=== PATIENT | male | born 1950 | race Hispanic/Latino ===

== ENCOUNTER 2018-01-09 09:02 | Inpatient (IN) | payer MEDICARE ==
[2017-12-26 11:35] VITALS: BMI 41.8
[2018-01-09] MEDS ORDERED: Propofol 10 mg/ml Inj (20 ML) ONE ×3 (10:58→16:06)
[2018-01-09] MEDS ORDERED: Midazolam 2 MG/2 ML VIAL ONE (10:59)
[2018-01-09] MEDS ORDERED: Rocuronium 10 mg/ml (5 ml) ONE (11:05)
--- NOTE | 2018-01-09 12:16 | CP.PCM.HP ---
History of Present Illness - History of Present Illness History of Present Illness: 67 M failed conservative management elected for a right total knee replacement No history of bleeding disorders, blood clots, SC or stents NKA Present on Admission - Present on Admission Any Indicators Present on Admission: No History of DVT/PE: No Past Patient History - Past Social History Smoking Status: Never Smoked - CARDIAC Hx Pacemaker: No - PULMONARY Hx Respiratory Disorders: No - NEUROLOGICAL Hx Paralysis: No - ENDOCRINE/METABOLIC Hx Endocrine Disorders: No - HEMATOLOGICAL/ONCOLOGICAL Hx Blood Transfusions: No - MUSCULOSKELETAL/RHEUMATOLOGICAL Hx Musculoskeletal Disorders: Yes (OSTEOARTHRITIS) - GASTROINTESTINAL Hx Gastrointestinal Disorders: No - GENITOURINARY/GYNECOLOGICAL Hx Genitourinary Disorders: Yes (URETHRAL STRICTURE) Hx Reproductive Disorders: No - PSYCHIATRIC Hx Emotional Abuse: No Hx Physical Abuse: No Hx Substance Use: No - SURGICAL HISTORY Hx Surgeries: Yes - ANESTHESIA Hx Anesthesia Reactions: No Hx Malignant Hyperthermia: No Meds Allergies/Adverse Reactions: Allergies Allergy/AdvReac Type Severity Reaction Status Date / Time No Known Allergies Allergy Verified 10/19/13 16:06 Physical Exam - Constitutional Appears: Well, No Acute Distress - Head Exam Head Exam: ATRAUMATIC, NORMAL INSPECTION, NORMOCEPHALIC - Neck Exam Neck exam: Positive for: Full Rom, Normal Inspection - Respiratory Exam Respiratory Exam: NORMAL BREATHING PATTERN - Cardiovascular Exam Cardiovascular Exam: RRR - Expanded Lower Extremities Exam Right Knee exam: tenderness (calf soft nontender. NVI distally ) - Neurological Exam Neurological exam: Alert, Oriented x3 - Psychiatric Exam Psychiatric exam: Normal Affect, Normal Mood - Skin Skin Exam: Dry, Intact, Normal Color, Warm Results - Vital Signs Recent Vital Signs: Last Vital Signs Temp 97.8 F 01/09/18 09:15 Pulse 99 H 01/09/18 09:15 Resp 18 01/09/18 09:15 BP 147/84 01/09/18 09:15 Pulse Ox 96 01/09/18 09:15 Assessment & Plan (1) Osteoarthritis of right knee Status: Acute - Assessment and Plan (Free Text) Plan: Right Total knee arthroplasty Type and screen NPO labs reviewed Patient medically optimized for a right total knee replacement Patient verbalizes understanding and would like to proceed with a right total knee replacement
[2018-01-09] MEDS ORDERED: Tranexamic Acid 1 ML ONE ×2 (13:32→15:49)
[2018-01-09] MEDS ORDERED: Sodium Chloride 0.9% 20 ML IV ONE (15:07)
[2018-01-09] MEDS ORDERED: Bupivacaine Liposomal Inj 20 ml ONE (15:07)
[2018-01-09] MEDS ORDERED: Vancomycin 1 g Inj ONE (15:20)
[2018-01-09] MEDS ORDERED: Morphine 1 mg/ml preservative-free Inj(Duramorph) ONE (15:43)
[2018-01-09] MEDS ORDERED: Bupivacaine Liposomal Inj 20 ml INJ ONE (15:44)
[2018-01-09] MEDS ORDERED: Neostigmine Methylsulfate 3mg/3ml Syringe IV ONE (16:06)
[2018-01-09] MEDS ORDERED: Bupivacaine 0.25% Inj(30mL) ONE (16:10)
[2018-01-09] MEDS ORDERED: HYDROmorphone 1 mg/ml ISec IVP PRN (17:12)
[2018-01-09] MEDS ORDERED: HYDROmorphone 0.5 mg/0.5 ml ISec IVP PRN (17:13)
[2018-01-09] MEDS ORDERED: Lactated Ringer's 1,000 ML IV SCH (17:15)
--- NOTE | 2018-01-09 17:15 | PCM.ANESB3 ---
Femoral Nerve Block - Femoral Nerve Block Date of Procedure: 01/09/18 Anesthesiologist: sushil Pre-Procedure Diagnosis: r tkr Post-Procedure Diagnosis: same Procedure Performed: Femoral Nerve Block Right - Procedure Femoral Nerve Block: The procedure was explained to the patient that it is for the post-operative pain management. Consent was obtained after a thorough discussion with the patient regarding the benefits and possible complications of local anesthetic block of the femoral nerve at the inguinal crease area. The patient was brought to the operating room and standard monitors were applied. Time-out was held with the circulating nurse to confirm the correct surgery and the appropriate block. After completion of procedure, the ___right groin exposed. The femoral artery was then carefully palpated. The ultrasound transducer was then applied to this area in the transverse plane and the femoral nerve was visualized lateral to the femoral artery and underneath the fascia iliaca. After thorough identification, the inguinal crease area was prepped with Betadine solution three times. At this point, a #21 gauge Stimuplex 4-inch needle was inserted immediately lateral to the femoral artery pulse at the inguinal crease and advanced perpendicularly. The needle was inserted to the ultrasound transducer in-plane towards the femoral nerve in a [id number] direction. Needle advancement was performed carefully under direct ultrasound visualization. After negative aspiration, __30___cc of _0.25____% bupi was injected. Under ultrasound guidance the local anesthetics were observed spreading below fascia iliaca and around the femoral nerve. The needle was removed intact and sterile dressing was applied. The patient had stable vital signs, was extubated and brought to pacu in no apparent distress.
[2018-01-09] MEDS ORDERED: Sodium Chloride 0.9% 1,000 ML IV SCH (17:30)
--- NOTE | 2018-01-09 18:22 | RAD ---
PROCEDURE: Portable right knee HISTORY: s/p R TKA COMPARISON: None available. TECHNIQUE: AP and lateral views. FINDINGS: Satisfactory position alignment of distal femur and tibial plateau components of right TKA. IMPRESSION: Satisfactory postoperative status.
[2018-01-09] MEDS: Lactobacillus Acidophilus 500 MU Cap PO SCH (20:54)
[2018-01-09] MEDS: Sildenafil 20 MG TAB PO SCH (20:54)
--- NOTE | 2018-01-09 21:15 | OP ---
PROCEDURE DATE: 01/09/2018 PREOPERATIVE DIAGNOSIS: Right knee arthritis. POSTOPERATIVE DIAGNOSIS: Right knee arthritis. PROCEDURE: Right total knee arthroplasty. SURGEON: Wilfrid Gardner MD. DYE MACHINE TENDER: Dr. Gardner is assisted by Valorie Carpenter, the physician education administrative assistant. Mike Carpenter was scrubbed and present throughout the entire case and assisted in patient positioning, retraction and wound closure. TYPE OF ANESTHESIA: General. COMPLICATIONS: None. ESTIMATED BLOOD LOSS: 175 mL. TOURNIQUET TIME: 125 minutes at 300 mmHg. IMPLANT: Biomet total knee system. INDICATIONS FOR PROCEDURE: This is a 67-year-old gentleman who presented with longstanding right knee pain. Clinical examination was consistent with approximately 5-degree flexion contracture, some mild varus deformity and significant generalized tenderness as well as patellofemoral pain. Radiographic examination was consistent with advanced degenerative joint disease. After a long period of failed nonsurgical management, recommendations were for a right total knee arthroplasty. The risks, benefits and alternatives of the procedure were discussed with the patient and the informed consent was obtained. DESCRIPTION OF PROCEDURE: After the surgical site was signed and verified in the preoperative holding area, the patient was taken to the operating room, placed supine on the operating room table. After administration of general anesthesia, the patient received 3 g of Ancef IV. Fishman catheter was inserted. Tourniquet was placed about the right thigh. Care was taken to make sure all bony prominences and nerves were well padded and protected and the right lower extremity was prepped and draped in the usual sterile fashion. The tourniquet was inflated and approximately a 12 cm longitudinal midline incision was made. Soft tissues were dissected sharply down to the knee joint. Medial parapatellar arthrotomy was performed. The medial and lateral menisci, the anterior fat pad, the ACL and PCL were all resected. Once the knee joint was adequately exposed, a step drill was used to drill into the medullary canal of the distal femur and an intramedullary distal femoral cutting block was inserted and pinned into place. A distal femoral resection was performed. Next, femoral component was sized and the 4-in-1 cut block was pinned into place and anterior and posterior cuts were performed. The box cut was performed on the femur and our attention directed to the tibia. The extramedullary tibial guide was placed. Satisfied with our alignment, our tibial resection was performed. At this point, flexion and extension gaps were checked. The patient was noted to have full flexion and extension and stable with varus and valgus stress and well balanced. At this point, the tibial plate was sized and being careful to maintain proper rotation, the medullary canal of the proximal tibia was reamed and punched with the cruciate punch. At this point, with the trial tibia, trial femur and trial bearing were placed. The knee was taken through a range of motion and was noted again to have full extension and flexion and stable throughout. Attention was directed to the patella. Thickness of the patella was measured and patella resection was performed. The patellar button was sized and the holes for the patella were then drilled. A trial patella was placed and the knee was taken through range of motion. The patient was noted to have some mild lateral tilt and this was corrected by performing lateral retinacular release. Once this was done, all the trial components were removed. The knee joint was pulse lavaged with antibiotic saline solution. The bony surfaces were dried and the actual tibial, femoral and patellar components were cemented into place. Care was taken to remove all excess cement. The knee joint was pulse lavaged with antibiotic solution and the arthrotomy was closed using #1 Vicryl suture. The subcutaneous tissue was closed using 0 Vicryl and 2-0 Vicryl sutures and the skin was closed using prateek. A WILEY dressing was applied and knee immobilizer was placed. The patient was awakened from the procedure and taken to the recovery room in stable condition. Wilfrid Gardner MD
[2018-01-10 06:28] LABS: BASO # 0.01 K/mm3 (0.0-2.0); BASO % 0.1 % (0.0-3.0); EOS % 0.1 % (1.5-5.0); GRAN # 9.12 (1.4-6.5); GRAN % 77.4 % (50.0-68.0); LYMPH # 1.4 (1.2-3.4); MEAN CELL VOLUME 86.1 fl (80.0-105.0); MEAN CORPUSCULAR HEMOGLOBIN 30.1 pg (25.0-35.0); MEAN CORPUSCULAR HGB CONC 34.9 g/dl (31.0-37.0); MEAN PLATELET VOLUME 10.9 fl (7.0-11.0); MONO # 1.2 (0.1-0.6); MONO % 10.4 % (1.0-6.0); RBC 4.82 10^6/uL (3.5-6.1); RED CELL DISTRIBUTION WIDTH 14.1 % (11.5-14.5); WHITE BLOOD COUNT 11.8 10^3/ul (4.5-11.0)
[2018-01-10 06:39] LABS: BLOOD UREA NITROGEN 19 mg/dL (7-21); CALCIUM 8.9 mg/dL (8.4-10.5); GFR AFRICAN-AMERICAN > 60; GFR NON-AFRICAN AMERICAN > 60
[2018-01-10 06:58] LABS: HEMOGLOBIN 14.5 g/dL (14.0-18.0)
--- NOTE | 2018-01-10 08:29 | CP.PCM.PN ---
Subjective - Date & Time of Evaluation Date of Evaluation: 01/10/18 Time of Evaluation: 07:45 - Subjective Subjective: Patient POD#1 s/p R TKA. Patient alert and awake, laying comfortably in bed. Patient denies significant pain, states pain is controlled. afebrile WBC: 11.8 Hgb 14.5 R knee: dressings dry and intact. WILEY wound vac on. Hemovac drain in place on suction. Calf and thigh are soft nontender. NVI distally POD#1 s/p R TKA Cont PT Cont DVT prophylaxis merino d/c- monitor urine output dressing changes tomorrow Objective - Vital Signs/Intake and Output Vital Signs (last 24 hours): Temp Pulse Resp BP Pulse Ox 98.8 F 99 H 18 128/69 96 01/09/18 23:09 01/09/18 23:09 01/09/18 23:09 01/09/18 23:09 01/09/18 23:09 Intake and Output: 01/10/18 01/10/18 06:59 18:59 Intake Total 600 Output Total 1500 Balance -900 - Medications Medications: Current Medications Acetaminophen (Tylenol 325mg Tab) 650 mg PO Q6 [facility] Last Admin: 01/10/18 05:06 Dose: 650 mg Amlodipine Besylate (Norvasc) 10 mg PO DAILY [facility] Apixaban (Eliquis) 2.5 mg PO BID [facility] PRN Reason: Protocol Docusate Sodium (Colace) 100 mg PO BID [facility] Last Admin: 01/09/18 20:53 Dose: 100 mg Hydromorphone HCl (Dilaudid) 1 mg IVP Q4H PRN PRN Reason: Pain, severe (8-10) Lactobacillus Acidophilus (Bacid Acidophilus) 1 cap PO DAILY [facility] Last Admin: 01/09/18 20:54 Dose: 1 cap Losartan Potassium (Cozaar) 50 mg PO DAILY [facility] Oxycodone HCl (Oxycodone Immediate Release Tab) 10 mg PO Q6H PRN PRN Reason: Pain, moderate (4-7) Pregabalin (Lyrica) 50 mg PO BID [facility] Last Admin: 01/09/18 20:54 Dose: 50 mg Sildenafil Citrate (Revatio) 50 mg PO QPM [facility] Last Admin: 01/09/18 20:54 Dose: 50 mg - Labs Labs: 01/10/18 06:00 04/04/18 06:00 Assessment and Plan (1) Osteoarthritis of right knee Status: Acute
[2018-01-10] MEDS: Lactobacillus Acidophilus 500 MU Cap PO SCH (09:15)
[2018-01-10] MEDS: oxyCODONE 10 mg Immediate Release Tab PO PRN ×2 (10:25→16:05)
[2018-01-10] MEDS: Sildenafil 20 MG TAB PO SCH (17:59)
[2018-01-10] MEDS: Cholecalciferol 1,000 INTLU TAB PO SCH (18:01)
--- NOTE | 2018-01-11 01:20 | CON ---
DATE: CARDIOLOGY CONSULTATION HISTORY OF PRESENT ILLNESS: I was asked to see postoperative for cardiac evaluation. Apparently, the patient has been transferred to [facility], and [facility] demanded a cardiac clearance. The patient is a 67-year-old male with no previous cardiac history. He underwent his knee surgery without issues. The patient's past medical history is free of cardiac disease. No chest pain, no shortness of breath. He does suffer from hypertension, which he is on Norvasc. The patient apparently is taking sildenafil for prostate hypertrophy, recommended to him from a doctor in [place]. He denies chest pain, denies shortness of breath. He has never smoked in the past. No chest pain. No edema in the lower extremities. REVIEW OF SYSTEMS: A 14-point review of systems is reviewed in detail. No cardiac symptomatology is noted. PHYSICAL EXAMINATION VITAL SIGNS: Blood pressure is 150/80, heart rate is in the 90s. NECK: Negative JVD. LUNGS: Without rales. HEART: Reveals S1 and S2. EXTREMITIES: Without edema. LABORATORY DATA: BUN and creatinine are unremarkable. The hemoglobin is 14. IMPRESSION: 1. Systemic hypertension which is mildly elevated, but reasonably controlled postoperatively. 2. History of benign prostatic hypertrophy, which he is on sildenafil. 3. Status post knee surgery. 4. Obesity. 5. No history of pulmonary hypertension. PLAN: Given these findings, there are no acute cardiac issues at this time. There are no cardiac issues that should present him from going to rehab. Kenneth Garcia MD
[2018-01-11 03:16] VITALS: RESP 18
--- NOTE | 2018-01-11 05:22 | CON ---
DATE: HISTORY OF PRESENT ILLNESS: The patient is a 67-year-old male who has been my patient for several years. He was evaluated a few weeks ago. He was given medical clearance for right knee replacement. Patient was admitted to [facility] by Dr. Wilfrid Gardner, the orthopedic surgeon. Yesterday, he underwent a knee replacement and we are called for medical consultation. The patient has essentially no past medical history except for his osteoarthritis. He never smoked. He drinks alcohol only occasionally. He does have urethral strictures, which is being followed by his urologist. HE HAS NO KNOWN MEDICAL ALLERGIES. When seen today, the patient is sitting up in a chair at bedside. His is present. He has a wide CEZAR-type bandage around his right lower extremity from the hip down to the ankle. The patient is feeling well. He is awake, alert and oriented. He denies any pain or discomfort from the surgery. PHYSICAL EXAMINATION: HEAD, EYES, EARS, NOSE AND THROAT: Unremarkable. LUNGS: Clear to auscultation and percussion. HEART: Regular. No murmurs appreciated. ABDOMEN: Soft and nontender. EXTREMITIES: Free of cyanosis, clubbing or edema. The dressing is in place on the right lower extremity as mentioned above. NEUROLOGIC: He is intact. IMPRESSION AND PLAN: So, the patient tolerated the procedure well. He is requesting Benadryl 50 mg to be given at bedtime to help him sleep. Arrangements were being made for a possible transfer to [facility]. The patient is medically stable and cleared for discharge when a bed becomes available. Chris Prater MD
[2018-01-11 06:49] LABS: BASO # 0.03 K/mm3 (0.0-2.0); BASO % 0.3 % (0.0-3.0); EOS # 0.1 (0.0-0.7); EOS % 0.6 % (1.5-5.0); GRAN # 8.91 (1.4-6.5); GRAN % 75.8 % (50.0-68.0); HEMOGLOBIN 13.9 g/dL (14.0-18.0); LYMPH # 1.2 (1.2-3.4); LYMPH % 9.9 % (22.0-35.0); MEAN CELL VOLUME 86.5 fl (80.0-105.0); MEAN CORPUSCULAR HEMOGLOBIN 29.7 pg (25.0-35.0); MEAN CORPUSCULAR HGB CONC 34.3 g/dl (31.0-37.0); MEAN PLATELET VOLUME 9.7 fl (7.0-11.0); MONO # 1.6 (0.1-0.6); MONO % 13.4 % (1.0-6.0); RBC 4.68 10^6/uL (3.5-6.1); RED CELL DISTRIBUTION WIDTH 13.9 % (11.5-14.5); WHITE BLOOD COUNT 11.8 10^3/ul (4.5-11.0)
[2018-01-11 07:15] LABS: BLOOD UREA NITROGEN 12 mg/dL (7-21); CALCIUM 8.7 mg/dL (8.4-10.5); GFR AFRICAN-AMERICAN > 60; GFR NON-AFRICAN AMERICAN > 60
[2018-01-11 08:07] VITALS: TEMP 98.5; O2SAT 94
[2018-01-11] MEDS ORDERED: Ergocalciferol 50,000 Intl Units Cap PO SCH (08:30)
[2018-01-11] MEDS: oxyCODONE 10 mg Immediate Release Tab PO PRN (10:27)
[2018-01-11] MEDS: Cholecalciferol 1,000 INTLU TAB PO SCH (10:27)
[2018-01-11] MEDS: Lactobacillus Acidophilus 500 MU Cap PO SCH (10:27)
[2018-01-11 10:33] VITALS: BP 135/65; PULSE 85
--- NOTE | 2018-01-11 11:31 | US ---
PROCEDURE: Bilateral lower extremity venous duplex Doppler. HISTORY: r/o DVT, PT states thigh is tender to palpation COMPARISON: Correlations made to right lower extremity duplex venous ultrasound dated 10/19/2013. No prior imaging of the left lower extremity venous system. TECHNIQUE: Bilateral common femoral, superficial femoral, popliteal and posterior tibial veins were evaluated. Flow was assessed with color Doppler, compressibility, assessment of phasic flow and augmentation response. FINDINGS: COMMON FEMORAL VEIN: Right CFV: Unremarkable. Left CFV: Unremarkable. SUPERFICIAL FEMORAL VEIN: Right SFV: Unremarkable. Left SFV: Unremarkable. POPLITEAL VEIN: Right Popliteal: Unremarkable. Left Popliteal: Unremarkable. POSTERIOR TIBIAL VEIN: Right PTV: Unremarkable. Left PTV: Unremarkable. OTHER FINDINGS: None. IMPRESSION: No evidence of deep venous thrombosis.
--- NOTE | 2018-01-11 12:48 | CP.PCM.PN ---
Subjective - Date & Time of Evaluation Date of Evaluation: 01/11/18 Time of Evaluation: 08:38 - Subjective Subjective: Patient POD#2 s/p R TKA. Patient sitting up in bed. Patient denies any significant pain Afebrile WBC 11.8 hgb 13.9 R knee: dressings and cory wound vac removed. Incision is clean and intact. There is no erythema or drainage. No signs of cellulitis or infection. The hemovac was removed. Incision cleaned with NSS and new light dry sterile dressings applied. Calf is soft and nontender, thigh is soft but patient states tender to palpation. NVI distally POD#2 s/p R TKA. Cont PT Cont DVT prophylaxis Will order venous doppler to rule out any blood clots Ergocalciferol given for Vit D deficiency Plan to discharge today to rehab Objective - Vital Signs/Intake and Output Vital Signs (last 24 hours): Temp Pulse Resp BP Pulse Ox 98.5 F 88 18 136/62 94 L 01/11/18 06:00 01/11/18 06:00 01/11/18 06:00 01/11/18 06:00 01/11/18 06:00 Intake and Output: 01/11/18 01/11/18 06:59 18:59 Intake Total 420 Output Total 1065 Balance -645 - Medications Medications: Current Medications Acetaminophen (Tylenol 325mg Tab) 650 mg PO Q6 [facility] Last Admin: 01/11/18 05:32 Dose: 650 mg Amlodipine Besylate (Norvasc) 10 mg PO DAILY [facility] Last Admin: 01/10/18 09:15 Dose: 10 mg Apixaban (Eliquis) 2.5 mg PO BID [facility] PRN Reason: Protocol Last Admin: 01/10/18 18:01 Dose: 2.5 mg Cholecalciferol (Vitamin D) 2,000 intlu PO DAILY [facility] Last Admin: 01/10/18 18:01 Dose: 2,000 intlu Diphenhydramine HCl (Benadryl) 50 mg PO HS PRN PRN Reason: Insomnia Last Admin: 01/10/18 21:41 Dose: 50 mg Docusate Sodium (Colace) 100 mg PO BID [facility] Last Admin: 01/10/18 18:02 Dose: 100 mg Ergocalciferol (Drisdol 50,000 Intl Units Cap) 1 cap PO Q7D [facility] Hydromorphone HCl (Dilaudid) 1 mg IVP Q4H PRN PRN Reason: Pain, severe (8-10) Lactobacillus Acidophilus (Bacid Acidophilus) 1 cap PO DAILY [facility] Last Admin: 01/10/18 09:15 Dose: 1 cap Losartan Potassium (Cozaar) 50 mg PO DAILY [facility] Last Admin: 01/10/18 09:15 Dose: 50 mg Oxycodone HCl (Oxycodone Immediate Release Tab) 10 mg PO Q6H PRN PRN Reason: Pain, moderate (4-7) Last Admin: 01/10/18 16:05 Dose: 10 mg Pregabalin (Lyrica) 50 mg PO BID [facility] Last Admin: 01/10/18 18:01 Dose: 50 mg Sildenafil Citrate (Revatio) 50 mg PO QPM [facility] Last Admin: 01/10/18 17:59 Dose: 50 mg - Labs Labs: 01/11/18 06:00 01/11/18 06:00 Assessment and Plan (1) Osteoarthritis of right knee Status: Acute
--- NOTE | 2018-01-11 21:55 | CP.PCM.DIS ---
Provider - Provider Date of Admission: 01/09/18 09:02 Attending physician: Wilfrid Gardner MD Primary care physician: Chris Prater MD Time Spent in preparation of Discharge (in minutes): 30 Diagnosis - Discharge Diagnosis (1) Osteoarthritis of right knee Status: Chronic (2) Vitamin D deficiency Status: Chronic Hospital Course - Lab Results Lab Results: Most Recent Lab Values WBC 11.8 10^3/ul (4.5-11.0) H 01/11/18 06:00 RBC 4.68 10^6/uL (3.5-6.1) 01/11/18 06:00 Hgb 13.9 g/dL (14.0-18.0) L 01/11/18 06:00 Hct 40.5 % (42.0-52.0) L 01/11/18 06:00 MCV 86.5 fl (80.0-105.0) 01/11/18 06:00 MCH 29.7 pg (25.0-35.0) 01/11/18 06:00 MCHC 34.3 g/dl (31.0-37.0) 01/11/18 06:00 RDW 13.9 % (11.5-14.5) 01/11/18 06:00 Plt Count 205 10^3/uL (120.0-450.0) 01/11/18 06:00 MPV 9.7 fl (7.0-11.0) 01/11/18 06:00 Gran % 75.8 % (50.0-68.0) H 01/11/18 06:00 Lymph % (Auto) 9.9 % (22.0-35.0) L 01/11/18 06:00 Roane % (Auto) 13.4 % (1.0-6.0) H 01/11/18 06:00 Eos % (Auto) 0.6 % (1.5-5.0) L 01/11/18 06:00 Baso % (Auto) 0.3 % (0.0-3.0) 01/11/18 06:00 Gran # 8.91 (1.4-6.5) H 01/11/18 06:00 Lymph # (Auto) 1.2 (1.2-3.4) 04/05/18 06:00 Roane # (Auto) 1.6 (0.1-0.6) H 01/11/18 06:00 Eos # (Auto) 0.1 (0.0-0.7) 01/11/18 06:00 Baso # (Auto) 0.03 K/mm3 (0.0-2.0) 01/11/18 06:00 Sodium 134 mmol/L (132-148) 01/11/18 06:00 Potassium 4.0 mmol/L (3.6-5.0) 01/11/18 06:00 Chloride 100 mmol/L (98-107) 01/11/18 06:00 Carbon Dioxide 25 mmol/L (21-33) 01/11/18 06:00 Anion Gap 14 (10-20) 01/11/18 06:00 BUN 12 mg/dL (7-21) 01/11/18 06:00 Creatinine 0.8 mg/dl (0.8-1.5) 01/11/18 06:00 Est GFR ( Amer) > 60 01/11/18 06:00 Est GFR (Non-Af Amer) > 60 01/11/18 06:00 Random Glucose 132 mg/dL (70-110) H 01/11/18 06:00 Calcium 8.7 mg/dL (8.4-10.5) 01/11/18 06:00 25-OH Vitamin D Total 15.7 NG/ML (30.0-100.0) L 01/10/18 06:00 - Hospital Course Hospital Course: 67M with PMH: with right knee osteoarthritis failed conservative management and elected for TKR. Postoperative imaging demonstrated acceptable position of prosthesis. Medical consultation was requested for post operative medical management. Bilateral lower extremity venous doppler were ordered for right thigh tenderness , and were negative for DVT on post operative day #2. Patients post operative course was complicated by acute blood loss anemia, hemodynamically stable and well tolerated, no treatment needed. Patient tolerated PT/OT well. Patient received VTE prophylaxis in the form of Eliquis 2.5mg BID and venodynes. PT was discharged to [facility] rehab, and continued on home medications as well as the Eliquis for DVT prophylaxis and cholecalciferol for vit D deficiency. Patient was WBAT RLE, ambulating with walker, and given instructions for dressing changes and to f/u in Dr. Gardner's office in 2 weeks. Discharge Exam - Head Exam Head Exam: ATRAUMATIC, NORMAL INSPECTION, NORMOCEPHALIC - Respiratory Exam Respiratory Exam: NORMAL BREATHING PATTERN - Cardiovascular Exam Cardiovascular Exam: RRR - Extremities Exam Additional comments: R knee: dressings changed POD#2. incision clean and intact. moderate swelling. No erythema or drainage. Calf soft nontender. NVI distally - Neurological Exam Neurological exam: Alert, Oriented x3 - Psychiatric Exam Psychiatric exam: Normal Affect, Normal Mood Discharge Plan - Follow Up Plan Instructions: Osteoarthritis, Benign Prostatic Hyperplasia (Enlarged Prostate) , Acute Pain, Adult, Arthritis and Exercise, Continuous Passive Motion Machine Additional Instructions: Pt s/p R TKA Cont PT Cont DVT prophylaxis Dressing changes, clean with NSS, apply light dry sterile dressings Will follow up with patient in Dr. Gardner's office in [address] Gardner, agrees. Referrals: Chris Prater MD [Primary Care Provider] -
--- NOTE | 2018-01-11 22:49 | PN ---
DATE: 01/11/2018 Patient was seen this afternoon, midday, in room 560, bed 1. He is out of bed in a chair, resting comfortably, feeling good about his right knee replacement. Surgery went well. He was able to ambulate a little bit with assistance and physical therapy. He is looking forward to physical therapy. They are looking into [facility] at this point. Labs, vital signs, and medications were reviewed. We will follow. Yon Prater MD
== END 2018-01-11 14:54 | DRG 470 ==
LOC: SDAINP 09:02 → EDSTATUS 11:30 → 5RNO 19:04
PROVIDERS: ADMIT Orthopaedic Surgery; ATTEND Orthopaedic Surgery
PROC: 0SRC0J9 Replacement of Right Knee Joint with Synthetic Substitute, Cemented, Open Approach (ICD-10-PCS; principal; 2018-01-09 11:30)
DX: M17.11 Unilateral primary osteoarthritis, right knee (principal); D62 Acute posthemorrhagic anemia; Z68.41 Body mass index [BMI] 40.0-44.9, adult; E55.9 Vitamin D deficiency, unspecified; E66.9 Obesity, unspecified; I10 Essential (primary) hypertension; N35.9 Urethral stricture, unspecified; N40.0 Benign prostatic hyperplasia without lower urinary tract symptoms

== ENCOUNTER 2018-06-19 06:19 | Inpatient (IN) | payer MEDICARE ==
--- NOTE | 2018-06-19 07:20 | CP.PCM.HP ---
History of Present Illness - History of Present Illness History of Present Illness: 67 M failed conservative management, elected for a left total knee replacement NKDA No hx of CT, stroke, blood clots, bleeding disorders Present on Admission - Present on Admission Any Indicators Present on Admission: No History of DVT/PE: No History of Uncontrolled Diabetes: No Review of Systems - Constitutional Constitutional: As Per HPI - EENT Eyes: As Per HPI Ears: As Per HPI Nose/Mouth/Throat: As Per HPI - Cardiovascular Cardiovascular: As Per HPI - Respiratory Respiratory: As Per HPI - Musculoskeletal Musculoskeletal: Joint Swelling, Stiffness Past Patient History - Past Social History Smoking Status: Never Smoked - CARDIAC Hx Pacemaker: No - PULMONARY Hx Respiratory Disorders: No - NEUROLOGICAL Hx Paralysis: No - RENAL Hx Chronic Kidney Disease: No - ENDOCRINE/METABOLIC Hx Endocrine Disorders: No - HEMATOLOGICAL/ONCOLOGICAL Hx Blood Transfusions: No Hx Blood Transfusion Reaction: No - INTEGUMENTARY Hx Dermatological Problems: No - MUSCULOSKELETAL/RHEUMATOLOGICAL Hx Musculoskeletal Disorders: Yes (OSTEOARTHRITIS) - GASTROINTESTINAL Hx Gastrointestinal Disorders: No - GENITOURINARY/GYNECOLOGICAL Hx Genitourinary Disorders: Yes (URETHRAL STRICTURE) - PSYCHIATRIC Hx Substance Use: No - SURGICAL HISTORY Hx Surgeries: Yes - ANESTHESIA Hx Anesthesia Reactions: Yes Hx Malignant Hyperthermia: No Meds Allergies/Adverse Reactions: Allergies Allergy/AdvReac Type Severity Reaction Status Date / Time No Known Allergies Allergy Verified 10/19/13 16:06 Physical Exam - Constitutional Appears: Well, No Acute Distress - Head Exam Head Exam: ATRAUMATIC, NORMAL INSPECTION, NORMOCEPHALIC - Neck Exam Neck exam: Positive for: Full Rom, Normal Inspection - Respiratory Exam Respiratory Exam: NORMAL BREATHING PATTERN - Cardiovascular Exam Cardiovascular Exam: RRR - Expanded Lower Extremities Exam Left Knee exam: tenderness (Calf and thigh are soft and nontender to palpation. NVI distally ), normal inspection - Neurological Exam Neurological exam: Alert, CN II-XII Intact, Oriented x3 - Psychiatric Exam Psychiatric exam: Normal Affect, Normal Mood - Skin Skin Exam: Dry, Intact, Normal Color, Warm Results - Labs Labs: Laboratory Results - last 24 hr 06/19/18 06:35 BBK History Checked Patient has bt Assessment & Plan (1) Osteoarthritis of left knee Assessment and Plan: NPO T&S OR for L TKA Patient medically optimized for surgery. Risks, benefits and alternatives discussed and patient verbalizes understanding and would like to proceed Status: Acute (2) Hypertension Status: Chronic (3) Vitamin D deficiency Status: Chronic (4) Urethral stricture Status: Chronic
[2018-06-19] MEDS ORDERED: Midazolam 2 MG/2 ML VIAL ONE (07:43)
[2018-06-19] MEDS ORDERED: Propofol 10 mg/ml Inj (20 ML) ONE ×2 (07:43→10:38)
[2018-06-19] MEDS ORDERED: Rocuronium 10 mg/ml (5 ml) ONE ×3 (07:44→09:50)
[2018-06-19] MEDS ORDERED: CeFAZolin 1 gm in NS 100ml IVPB ONE (07:53)
[2018-06-19] MEDS ORDERED: Vancomycin 1 g Inj IVPB ONE (08:40)
[2018-06-19] MEDS ORDERED: Bupivacaine Liposomal Inj 20 ml INJ ONE (08:50)
[2018-06-19] MEDS ORDERED: Bupivacaine 0.5% Inj(30mL) ONE (10:30)
[2018-06-19] MEDS ORDERED: Glycopyrrolate 0.2 mg/ml (2ml vial) ONE (10:31)
[2018-06-19] MEDS ORDERED: Neostigmine Methylsulfate 3mg/3ml Syringe IV ONE (10:31)
[2018-06-19] MEDS ORDERED: ePHEDrine 50 mg/ml Inj ONE (10:57)
[2018-06-19] MEDS ORDERED: HYDROmorphone 0.5 mg/0.5 ml ISec IVP PRN (11:00)
[2018-06-19] MEDS ORDERED: Lactated Ringer's 1,000 ML IV SCH (11:00)
--- NOTE | 2018-06-19 11:37 | OP ---
PROCEDURE DATE: 06/19/2018 PREOPERATIVE DIAGNOSIS: Left knee arthritis. POSTOPERATIVE DIAGNOSIS: Left knee arthritis. PROCEDURE: Left total knee arthroplasty. SURGEON: Wilfrid Gardner MD. TRAIN GATEMAN: Dr. Gardner was assisted by Valorie Carpenter, the physician head start assistant teacher and Ave Velez, the physician head start assistant teacher. Both physician assistants were scrubbed and present throughout the entire case and assisted in patient positioning, retraction during the case and wound closure. ANESTHESIA: General. COMPLICATIONS: None. ESTIMATED BLOOD LOSS: 75 mL. TOURNIQUET TIME: 129 minutes at 300 mmHg. IMPLANT: Biomet Vanguard total knee. INDICATION FOR PROCEDURE: This is a 67-year-old gentleman with longstanding left knee pain. Clinical examination was consistent with a mild varus deformity, significant medial patellar tenderness to palpation, pain with axial load. Radiographic examination was consistent with advanced degenerative joint disease. After a period of failed nonsurgical management including antiinflammatory medications, injections, activity modification, recommendations were for left total knee arthroplasty. The risks, benefits and alternatives of the procedure were discussed with the patient and the informed consent was obtained. OPERATIVE PROCEDURE: After the surgical site was signed and verified in the preoperative holding area, the patient was taken to the operating room and placed supine on the operating room table. After administration of general anesthesia, the patient received 2 g of Ancef IV. Tourniquet was placed about the left thigh. Care was taken to make sure all bony prominences and nerves were well padded and protected. Venodyne boot was placed on the nonoperative extremity and the left lower extremity was prepped and draped in the usual sterile fashion. Bony landmarks were identified and approximately 12 cm longitudinal midline incision was made. Soft tissues were dissected sharply down to the knee joint and the medial parapatellar arthrotomy was performed. The anterior fat pad, medial and lateral menisci, ACL and PCL were all resected. Once the knee joint was adequate exposed, a step drill was used to drill to the medullary canal of the distal femur and intramedullary distal femoral cutting block was inserted. Our distal femoral resection was performed. Next, a femoral component was sized and then 4-in-1 cut block was pinned into place. Our anterior and posterior cuts were performed. The box cut was then performed on the distal femur. Attention was directed to the tibia. Using the extramedullary tibial cutting guide, an extramedullary tibial resection was performed. At this point, our flexion and extension gaps were checked. Medial soft tissue release was performed. At this point, the patient was noted to have full extension and flexion and balance with varus and valgus stress. Next, the tibial component was sized and being careful to maintain proper rotation. The medullary canal of the tibia was reamed and punched with the cruciate punch. At this point, with the trial tibia, trial femur and trial bearing in place, the knee was taken through a range of motion and was noted to have full extension and flexion and stable throughout its range of motion. Our attention was directed to the patella. The thickness of the patella was measured and our patella resection was performed. The patellar button was sized and the holes for our patellar button were then drilled. Trial patella was then inserted and the knee was taken through a range of motion. The patient was noted to have some lateral patellar tilt and this was corrected by performing a lateral retinacular release. At this point, all the trial components were removed and the knee joint was pulse lavaged with antibiotic saline solution. The bony surfaces were dried and the actual tibial, femoral and patellar components were cemented into place. Care was taken to remove all excess cement. Once the cement had hardened, the wound was inspected for any debris and irrigated. The tourniquet was deflated and any obvious bleeding was cauterized. The actual bearing was then inserted into place and locked into place with a cross pin. At this point, a medium Hemovac drain was inserted and arthrotomy was closed using #1 Vicryl suture. Subcutaneous tissue was closed using 0 Vicryl and 2-0 Vicryl suture and the skin was closed using prateek. Sterile dressing was applied and a knee immobilizer was placed. The patient was awakened from the procedure and taken to the recovery room in stable condition. Wilfrid Gardner MD
--- NOTE | 2018-06-19 11:50 | PCM.SURG1 ---
Surgeon's Initial Post Op Note - Surgeon's Notes Surgeon: Rohith Gardner MD Leather Cleaner: Ghassan Rosales PA-C Type of Anesthesia: General Endo Anesthesia Administered By: Dr. Edwards Pre-Operative Diagnosis: left knee osteoarthritis Operative Findings: see full note Post-Operative Diagnosis: same Operation Performed: left total knee arthroplasty Specimen/Specimens Removed: none Estimated Blood Loss: EBL {In ML}: 75 Blood Products Given: N/A Drains Used: Hemovac, Wound Vac Post-Op Condition: Fair Date of Surgery/Procedure: 06/19/18 Time of Surgery/Procedure: 11:50
[2018-06-19] MEDS ORDERED: HYDROmorphone 1 mg/ml ISec IM PRN (12:02)
[2018-06-19] MEDS ORDERED: HYDROmorphone 0.5 mg/0.5 ml ISec ONE ×3 (12:21→12:55)
[2018-06-19] MEDS ORDERED: HYDROmorphone 0.5 mg/0.5 ml ISec IVP ONE ×2 (12:40→12:55)
--- NOTE | 2018-06-19 13:13 | RAD ---
Date of service: 06/19/2018 PROCEDURE: Left Knee Radiographs. HISTORY: Pain. COMPARISON: None. FINDINGS: BONES: No acute displaced fracture or bone destruction. Bone alignment and mineralization are normal. JOINTS: Status post total cemented knee arthroplasty. JOINT EFFUSION: None. OTHER FINDINGS: There are midline anterior skin prateek. There are postoperative changes in the periarticular soft tissues. IMPRESSION: Status post total cemented knee arthroplasty, no acute complications.
[2018-06-19 17:22] VITALS: BMI 41.8
[2018-06-19] MEDS ORDERED: Pneumococcal 23-Valent Vaccine IM ONE (17:22)
[2018-06-19] MEDS: ceFAZolin IV 2 gm in Dextrose 2 GM/50 ML BAG IVPB SCH ×2 (17:47→23:28)
[2018-06-19] MEDS ORDERED: SILDENAFIL CITRATE 50 MG PO SCH ×2 (18:00)
[2018-06-19] MEDS ORDERED: Nitroglycerin 2% Ointment Foilpak UD TOP ONE (20:57)
--- NOTE | 2018-06-19 21:04 | CP.PCM.PN ---
Addendum entered and electronically signed by Saniya Arora DO 06/20/18 00:27 : Correction to the PMHx: no history of PA, CVA or dvt. Original Note: <Saniya Arora - Last Filed: 06/20/18 00:12> Subjective - Date & Time of Evaluation Date of Evaluation: 06/19/18 Time of Evaluation: 07:45 - Subjective Subjective: Progress note for Dr Calix. Paged by nurse to evaluate patient. Patient is a 67 y/o male with PMHx of htn, PA, CVA, DVT, severe OA admitted s/p left knee replacement today. Patient was complaining of right sided chest pain 4 /10, non radiating, not worsened or relieved by movement. The cp started suddenly when patient was lying down on the bed. Upon checking patient BP was 170/67, Temp 98.3, HR 99, and O2 sat 93 on room air. EKG was obtained revealing ST elevation in leads V1-V3, with troponin of 0.03. Compared to the old EKG from 05/23/19, this finding is new. Dr Garcia, the [facility] was contacted, EKGs ( old and new) were sent. Upon reviewing the EKGs, Dr Garcia agreed that the new EKG is suspicious for STEMI. Dr Garcia spoke to Dr Gilman, the orthopedic physician, and as per Dr Gilman , since patient just had knee replacement today, taking patient to the skilled laborer will impose high risk of hemorrhaging to the left knee and patient potentially loosing his knee. Thus patient was giving SL nitro x3 5 minutes apart with close monitoring of the BP. Patient reported improvement of the chest pain with the SL nitro. As recommended by Dr Garcia, patient was also giving asa, Lopressor 25 mg po, 2 litters NC, and patient was transferred to the ICU. CBC was also repeated. Objective - Vital Signs/Intake and Output Vital Signs (last 24 hours): Temp Pulse Resp BP Pulse Ox 97.5 F L 94 H 18 156/81 H 99 06/19/18 16:56 06/19/18 16:56 06/19/18 16:56 06/19/18 16:56 06/19/18 14:02 Intake and Output: 06/19/18 06/20/18 18:59 06:59 Intake Total 0 540 Output Total 500 Balance 0 40 - Medications Medications: Current Medications Acetaminophen (Tylenol 325mg Tab) 650 mg PO Q6H [facility] Last Admin: 06/19/18 18:16 Dose: 650 mg Amlodipine Besylate (Norvasc) 10 mg PO DAILY [facility] Apixaban (Eliquis) 2.5 mg PO BID [facility] PRN Reason: Protocol Cholecalciferol (Vitamin D) 2,000 intlu PO DAILY [facility] Docusate Sodium (Colace) 100 mg PO BID [facility] Last Admin: 06/19/18 18:13 Dose: 100 mg Hydromorphone HCl (Dilaudid) 1 mg IVP Q6 PRN PRN Reason: Pain, severe (8-10) Cefazolin Sodium/Dextrose (Ancef Iv 2 Gm Duplex) 2 gm in 50 mls @ 50 mls/hr IVPB Q8H [facility] PRN Reason: Protocol Stop: 06/20/18 00:59 Last Admin: 06/19/18 17:47 Dose: 50 mls/hr Losartan Potassium (Cozaar) 50 mg PO DAILY [facility] Nitroglycerin (Nitro-Bid 2% Oint) 1 ea TOP ONCE ONE Stop: 06/19/18 20:58 Non-Formulary Medication (Sildenafil Citrate [Viagra]) 50 mg PO QPM [facility] Last Admin: 06/19/18 19:34 Dose: Not Given Non-Formulary Medication (Lactobacillus Combination No.8 [Adult Probiotic]) 1 cap PO DAILY [facility] Ondansetron HCl (Zofran Inj) 4 mg IVP ONCE PRN PRN Reason: Nausea/Vomiting Oxycodone HCl (Oxycodone Immediate Release Tab) 5 mg PO Q4H PRN PRN Reason: Pain, moderate (4-7) Pregabalin (Lyrica) 50 mg PO BID [facility] Last Admin: 06/19/18 18:13 Dose: 50 mg Sennosides (Senokot Tab) 17.2 mg PO HS [facility] - Constitutional Appears: No Acute Distress - Head Exam Head Exam: ATRAUMATIC, NORMAL INSPECTION, NORMOCEPHALIC - Eye Exam Eye Exam: Normal appearance - ENT Exam ENT Exam: Mucous Membranes Moist - Neck Exam Neck Exam: Normal Inspection - Respiratory Exam Respiratory Exam: Clear to Ausculation Bilateral, NORMAL BREATHING PATTERN. absent: Rales, Rhonchi, Wheezes, Respiratory Distress, Stridor - Cardiovascular Exam Cardiovascular Exam: REGULAR RHYTHM, +S1, +S2. absent: Murmur - GI/Abdominal Exam GI & Abdominal Exam: Soft, Normal Bowel Sounds. absent: Distended, Firm, Guarding, Rigid, Tenderness - Extremities Exam Additional comments: Left knee with clean dressing, and surgical drain with serosanguinous blood. - Neurological Exam Neurological Exam: Alert, Awake, Oriented x3 - Psychiatric Exam Psychiatric exam: Normal Affect, Normal Mood - Skin Skin Exam: Dry, Intact, Warm Assessment and Plan - Assessment and Plan (Free Text) Assessment: This is a 67 y/o s/p left knee replacement complaining of right sided chest pain , EKG suspicious for STEMI. Patient unable to go to cardiac cath due to left knee replacement today, and as per Dr Garcia in conversation with Dr Gilman, taking patient to the skilled laborer runs the risk of hemorrhaging into the left knee resulting in the patient loosing his left knee. Patient and patient's spouse who was at the bed side was made aware and they agreed with the plan. Patient's pcp Dr Prater was also made aware. Plan: - Transfer to ICU - Will trend troponin q6hr - repeat EKG in the morning - Apply 1 inch nitro paste as per Dr Garcia - Continue with daily asa, Lopressor 25 mg bid, - CBC with stable hgb, continue to monitor - will add hgba1c and lipid panel to the am lab. - Holding Viagra. Patient seen, examined and case discussed with Dr Calix, and Dr Garcia. <Sanjana Calix - Last Filed: 06/20/18 05:22> Objective - Vital Signs/Intake and Output Vital Signs (last 24 hours): Temp Pulse Resp BP Pulse Ox 98.3 F 72 20 142/74 92 L 06/19/18 19:20 06/20/18 00:50 06/20/18 00:50 06/20/18 00:00 06/20/18 00:50 Intake and Output: 06/19/18 06/20/18 18:59 06:59 Intake Total 0 540 Output Total 500 Balance 0 40 - Medications Medications: Current Medications Acetaminophen (Tylenol 325mg Tab) 650 mg PO Q6H [facility] Last Admin: 06/19/18 23:44 Dose: Not Given Apixaban (Eliquis) 2.5 mg PO BID [facility] PRN Reason: Protocol Aspirin (Aspirin Chewable) 81 mg PO DAILY [facility] Aspirin (Aspirin Chewable) 243 mg PO ONCE ONE Stop: 06/20/18 23:22 Last Admin: 06/19/18 23:31 Dose: 243 mg Cholecalciferol (Vitamin D) 2,000 intlu PO DAILY [facility] Diphenhydramine HCl (Benadryl) 25 mg PO HS PRN PRN Reason: Insomnia Last Admin: 06/19/18 23:29 Dose: 25 mg Docusate Sodium (Colace) 100 mg PO BID [facility] Last Admin: 06/19/18 18:13 Dose: 100 mg Hydromorphone HCl (Dilaudid) 1 mg IVP Q6 PRN PRN Reason: Pain, severe (8-10) Last Admin: 06/20/18 04:35 Dose: 1 mg Losartan Potassium (Cozaar) 50 mg PO DAILY [facility] Metoprolol Tartrate (Lopressor) 25 mg PO BID [facility] Last Admin: 06/19/18 21:55 Dose: 25 mg Nitroglycerin (Nitro-Bid 2% Oint) 1 ea TOP Q6 [facility] Last Admin: 06/19/18 23:29 Dose: 1 ea Non-Formulary Medication (Sildenafil Citrate [Viagra]) 50 mg PO QPM [facility] Last Admin: 06/19/18 19:34 Dose: Not Given Non-Formulary Medication (Lactobacillus Combination No.8 [Adult Probiotic]) 1 cap PO DAILY [facility] Ondansetron HCl (Zofran Inj) 4 mg IVP ONCE PRN PRN Reason: Nausea/Vomiting Oxycodone HCl (Oxycodone Immediate Release Tab) 5 mg PO Q4H PRN PRN Reason: Pain, moderate (4-7) Last Admin: 06/20/18 01:40 Dose: 5 mg Pregabalin (Lyrica) 50 mg PO BID [facility] Last Admin: 06/19/18 18:13 Dose: 50 mg Sennosides (Senokot Tab) 17.2 mg PO HS [facility] Last Admin: 06/19/18 22:20 Dose: Not Given - Labs Labs: 06/19/18 21:43 Attending/Attestation - Attestation I have personally seen and examined this patient.: Yes I have fully participated in the care of the patient.: Yes I have reviewed all pertinent clinical information, including history, physical exam and plan: Yes Notes (Text): 06/20/18 05:03 Patient seen with resident by the bedside.Case discussed in detail. Agree with documentation,assessment and plan of treatment. EKG findings were new.In addition to ST elevation in the leads.there is ST elevation in lead 111.Dr Garcia was consulted.As per advice,pt transferred to ICU. 06/20/18 05:19
[2018-06-19 21:10] LABS: TROPONIN I 0.03 ng/mL
--- NOTE | 2018-06-19 21:45 | CP.PCM.CON ---
<Saniya Arora - Last Filed: 06/20/18 00:32> History of Present Illness - History of Present Illness History of Present Illness: PGY-3 ICU consult note for Dr Roberts, Reason for consult: ST elevation in the anterior leads suspicious for AMI. Patient is a 67 y/o male with PMHx of htn, urethral stricture, severe OA admitted s/p left knee replacement today. Patient was complaining of right sided chest pain 4/10, non radiating, not worsened or relieved by movement. The cp started suddenly when patient was lying down on the bed. Upon checking patient BP was 170/67, Temp 98.3, HR 99, and O2 sat 93 on room air. EKG was obtained revealing ST elevation in leads V1-V3, with troponin of 0.03. Compared to the old EKG from 05/23/19, this finding is new. Dr Garcia, the [facility] heart planting machine operator was contacted, EKGs ( old and new) were sent. Upon reviewing the EKGs, Dr Garcia agreed that the new EKG is suspicious for STEMI. Dr Garcia spoke to Dr Gilman, the orthopedic physician, and as per Dr Gilman , since patient just had knee replacement today, taking patient to the animal laboratory helper will impose high risk of hemorrhaging to the left knee and patient potentially loosing his knee. Thus patient was giving SL nitro x3 5 minutes apart with close monitoring of the BP. Patient reported improvement of the chest pain with the SL nitro. As recommended by Dr Garcia, patient was also giving asa, Lopressor 25 mg po, 2 litters NC. ICU was consulted to transfer patient to the ICU for close monitoring. Patient and patient's spouse who was at the bed side was made aware and they agreed with the plan. Patient otherwise denies sob, no dizziness, headache, lightheadedness, n/v or diarrhea. No fever or chills. Admits to left knee pain. PMHx: as stated above PSHx: left tka recently, right tka in the past Social: denies alcohol, tobacco, or illicit drug use. Lives with spouse. Allergy; NKDA Home meds: as per HPI. Review of Systems - Review of Systems All systems: reviewed and no additional remarkable complaints except Review of Systems: As per HPI. Past Patient History - Past Social History Smoking Status: Never Smoked Alcohol: None Drugs: Denies Home Situation {Lives}: With Family - CARDIAC Hx Cardiac Disorders: Yes Hx Hypertension: Yes Hx Pacemaker: No - PULMONARY Hx Respiratory Disorders: No - NEUROLOGICAL Hx Neurological Disorder: No - HEENT Hx HEENT Problems: No - RENAL Hx Chronic Kidney Disease: No - ENDOCRINE/METABOLIC Hx Endocrine Disorders: No - HEMATOLOGICAL/ONCOLOGICAL Hx Blood Disorders: No - INTEGUMENTARY Hx Dermatological Problems: No - MUSCULOSKELETAL/RHEUMATOLOGICAL Hx Musculoskeletal Disorders: Yes (OSTEOARTHRITIS) Hx Falls: No Hx Osteoarthritis: Yes (RIGHT KNEE) Other/Comment: TORN RIGHT ACL,NOSE SX,BILATERAL SHOULDER SX - GASTROINTESTINAL Hx Gastrointestinal Disorders: No - GENITOURINARY/GYNECOLOGICAL Hx Genitourinary Disorders: Yes (URETHRAL STRICTURE) Hx Prostate Problems: Yes (PROSTATE CA WITH METS) - PSYCHIATRIC Hx Psychophysiologic Disorder: No Hx Emotional Abuse: No Hx Physical Abuse: No Hx Substance Use: No - SURGICAL HISTORY Hx Surgeries: Yes (RIGHT KNEE SX X 2,L KNEE SX 06-19-18, TORN R ACL,NOSE SX.) - ANESTHESIA Hx Anesthesia Reactions: Yes Hx Malignant Hyperthermia: No Meds Allergies/Adverse Reactions: Allergies Allergy/AdvReac Type Severity Reaction Status Date / Time No Known Allergies Allergy Verified 06/19/18 14:57 - Medications Medications: Current Medications Acetaminophen (Tylenol 325mg Tab) 650 mg PO Q6H [facility] Last Admin: 06/19/18 18:16 Dose: 650 mg Amlodipine Besylate (Norvasc) 10 mg PO DAILY [facility] Apixaban (Eliquis) 2.5 mg PO BID [facility] PRN Reason: Protocol Cholecalciferol (Vitamin D) 2,000 intlu PO DAILY [facility] Docusate Sodium (Colace) 100 mg PO BID [facility] Last Admin: 06/19/18 18:13 Dose: 100 mg Hydromorphone HCl (Dilaudid) 1 mg IVP Q6 PRN PRN Reason: Pain, severe (8-10) Cefazolin Sodium/Dextrose (Ancef Iv 2 Gm Duplex) 2 gm in 50 mls @ 50 mls/hr IVPB Q8H [facility] PRN Reason: Protocol Stop: 06/20/18 00:59 Last Admin: 06/19/18 17:47 Dose: 50 mls/hr Losartan Potassium (Cozaar) 50 mg PO DAILY [facility] Nitroglycerin (Nitrostat Sl Tab) 0.4 mg SL Q5M [facility] Stop: 06/19/18 21:56 Non-Formulary Medication (Sildenafil Citrate [Viagra]) 50 mg PO QPM [facility] Last Admin: 06/19/18 19:34 Dose: Not Given Non-Formulary Medication (Lactobacillus Combination No.8 [Adult Probiotic]) 1 cap PO DAILY [facility] Ondansetron HCl (Zofran Inj) 4 mg IVP ONCE PRN PRN Reason: Nausea/Vomiting Oxycodone HCl (Oxycodone Immediate Release Tab) 5 mg PO Q4H PRN PRN Reason: Pain, moderate (4-7) Pregabalin (Lyrica) 50 mg PO BID [facility] Last Admin: 06/19/18 18:13 Dose: 50 mg Sennosides (Senokot Tab) 17.2 mg PO HS [facility] Physical Exam - Constitutional Appears: No Acute Distress - Head Exam Head Exam: ATRAUMATIC, NORMAL INSPECTION, NORMOCEPHALIC - Eye Exam Eye Exam: EOMI, Normal appearance, PERRL - ENT Exam ENT Exam: Mucous Membranes Moist - Neck Exam Neck exam: Positive for: Normal Inspection - Respiratory Exam Respiratory Exam: Clear to Auscultation Bilateral, NORMAL BREATHING PATTERN. absent: Rales, Rhonchi, Wheezes, Respiratory Distress, Stridor - Cardiovascular Exam Cardiovascular Exam: REGULAR RHYTHM, RRR, +S1, +S2. absent: Bradycardia, Tachycardia, Systolic Murmur - GI/Abdominal Exam GI & Abdominal Exam: Normal Bowel Sounds, Soft. absent: Distended, Firm, Guarding, Rebound, Rigid, Tenderness - Extremities Exam Additional comments: left knee immobilized, with clean dressing, and surgical drain with sanguineous fluid. - Neurological Exam Neurological exam: Alert, Oriented x3 - Psychiatric Exam Psychiatric exam: Normal Affect, Normal Mood - Skin Skin Exam: Dry, Normal Color, Warm Results - Vital Signs Recent Vital Signs: Last Vital Signs Temp 98.3 F 06/19/18 19:20 Pulse 83 06/19/18 21:12 Resp 20 06/19/18 19:20 BP 172/87 H 06/19/18 21:12 Pulse Ox 93 L 06/19/18 19:20 - Labs Result Diagrams: 06/19/18 21:43 Labs: Laboratory Results - last 24 hr 06/19/18 06/19/18 06:35 20:43 Lactate Dehydrogenase 532 Total Creatine Kinase 175 Troponin I 0.03 Blood Type A POSITIVE Antibody Screen Negative BBK History Checked Patient has bt - EKG Data EKG Interpreted by: Myself (ST elevation on leads V1-V3 with qtcs prolongation.) Assessment & Plan - Assessment and Plan (Free Text) Assessment: This is a 67 y/o s/p left knee replacement complaining of right sided chest pain , EKG suspicious for STEMI on the anterior leads. Patient unable to go to cardiac cath due to left knee replacement today, and as per Dr Garcia in conversation with Dr Gilman, taking patient to the animal laboratory helper put the patient in the risk of hemorrhaging into the left knee resulting in the patient loosing the knee. Patient and patient's were made aware of the situations, and agreed with the plan. Patient is to be transferred to the ICU for further management and monitoring. Patient's pcp Dr Prater was also made aware. Plan: Neurology: stable at baseline, able to speak in full sentences. Pulm: stable, nasal cannula prn to maintain O2 sat above 96%. CVS: ST elevation on the anterior leads suspicious for STEMI. Dr Garcia contacted, code heart not called due to, as per Dr Gilman the risk of hemorrhaging to the left knee since patient had the left knee replacement today. s/p SL nitro x3, with improvement of the chest pain, will continue with 1 inch nitro paste q6 Lopressor 25 mg bid, s/p ASA loading dose, continue with 81 mg [id number] and lipid panel ordered Continue to trend troponin, repeat ekg in the morning. Will continue with losartan. Heart health diet. ID: On ancef prophylactically as post op, + leukocytosis, no fever, otherwise no signs of sepsis, will continue to monitor Renal: stable renal function, continue to monitor Endo: maintain euglycemia. Hypovitaminosis- continue with vitamin D Heme: h/h stable, will continue to monitor, monitor surgical drain. Gi: on Colace and Senokot to prevent constipation. MSK: S/p TKR- pain control as per ortho- Dilaudid 1 q6 prn, oxy 5 mg q4 prn. DVT prophylaxis: VTE device then eliquis 2.5 mg bid as per ortho to start tomorrow am. Patient seen, examined and case discussed with Dr Roberts. - Date & Time Date: 06/19/18 Time: 10:50 <Dirk Roberts - Last Filed: 06/20/18 01:21> Meds - Medications Medications: Current Medications Acetaminophen (Tylenol 325mg Tab) 650 mg PO Q6H [facility] Last Admin: 06/19/18 23:44 Dose: Not Given Apixaban (Eliquis) 2.5 mg PO BID [facility] PRN Reason: Protocol Aspirin (Aspirin Chewable) 81 mg PO DAILY [facility] Aspirin (Aspirin Chewable) 243 mg PO ONCE ONE Stop: 06/20/18 23:22 Last Admin: 06/19/18 23:31 Dose: 243 mg Cholecalciferol (Vitamin D) 2,000 intlu PO DAILY [facility] Diphenhydramine HCl (Benadryl) 25 mg PO HS PRN PRN Reason: Insomnia Last Admin: 06/19/18 23:29 Dose: 25 mg Docusate Sodium (Colace) 100 mg PO BID [facility] Last Admin: 06/19/18 18:13 Dose: 100 mg Hydromorphone HCl (Dilaudid) 1 mg IVP Q6 PRN PRN Reason: Pain, severe (8-10) Last Admin: 06/19/18 23:29 Dose: 1 mg Losartan Potassium (Cozaar) 50 mg PO DAILY [facility] Metoprolol Tartrate (Lopressor) 25 mg PO BID [facility] Last Admin: 06/19/18 21:55 Dose: 25 mg Nitroglycerin (Nitro-Bid 2% Oint) 1 ea TOP Q6 [facility] Last Admin: 06/19/18 23:29 Dose: 1 ea Non-Formulary Medication (Sildenafil Citrate [Viagra]) 50 mg PO QPM [facility] Last Admin: 06/19/18 19:34 Dose: Not Given Non-Formulary Medication (Lactobacillus Combination No.8 [Adult Probiotic]) 1 cap PO DAILY [facility] Ondansetron HCl (Zofran Inj) 4 mg IVP ONCE PRN PRN Reason: Nausea/Vomiting Oxycodone HCl (Oxycodone Immediate Release Tab) 5 mg PO Q4H PRN PRN Reason: Pain, moderate (4-7) Pregabalin (Lyrica) 50 mg PO BID [facility] Last Admin: 06/19/18 18:13 Dose: 50 mg Sennosides (Senokot Tab) 17.2 mg PO HS [facility] Last Admin: 06/19/18 22:20 Dose: Not Given Results - Vital Signs Recent Vital Signs: Last Vital Signs Temp 98.3 F 06/19/18 19:20 Pulse 72 06/20/18 00:50 Resp 20 06/20/18 00:50 BP 142/74 06/20/18 00:00 Pulse Ox 92 L 06/20/18 00:50 - Labs Result Diagrams: 06/19/18 21:43 Labs: Laboratory Results - last 24 hr 06/19/18 06/19/18 06/19/18 06:35 20:43 21:43 WBC 16.3 H D RBC 5.36 Hgb 15.9 Hct 45.9 MCV 85.6 MCH 29.7 MCHC 34.6 RDW 14.6 H Plt Count 278 MPV 10.2 Lactate Dehydrogenase 532 Total Creatine Kinase 175 Troponin I 0.03 Blood Type A POSITIVE Antibody Screen Negative BBK History Checked Patient has bt Attending/Attestation - Attestation I have personally seen and examined this patient.: Yes I have fully participated in the care of the patient.: Yes I have reviewed all pertinent clinical information: Yes Notes (Text): Pt seen and examined independently. Pt with typical angina, and ST elevations noted on the anterior leads. I discussed case with Dr Garcia (gis geographer) who had already discussed with Dr Gilman (Orthopedic Surgeon), and given the risk vs benefit associated with starting pt on therapeutic anticoagulation, decision was made to hold off on cath and heparin for now and transfer the pt to the ICU for closer monitoring and control angina symptoms. Pt responded to nitro SL. Vitals remain hemodynamically stable - ASA 325mg - Lopressor 25mg BID Plan was discussed in detail with pt and , and their questions were answered to their satisfaction. 06/20/18 01:13
[2018-06-19 21:46] LABS: HEMOGLOBIN 15.9 g/dL (14.0-18.0); MEAN CELL VOLUME 85.6 fl (80.0-105.0); MEAN CORPUSCULAR HEMOGLOBIN 29.7 pg (25.0-35.0); MEAN CORPUSCULAR HGB CONC 34.6 g/dl (31.0-37.0); MEAN PLATELET VOLUME 10.2 fl (7.0-11.0); RBC 5.36 10^6/uL (3.5-6.1); RED CELL DISTRIBUTION WIDTH 14.6 % (11.5-14.5); WHITE BLOOD COUNT 16.3 10^3/ul (4.5-11.0)
[2018-06-19] MEDS: Nitroglycerin 2% Ointment Foilpak UD TOP SCH (23:29)
[2018-06-19] MEDS: HYDROmorphone 1 mg/ml ISec IVP PRN (23:29)
[2018-06-20] MEDS: oxyCODONE 5 mg Immediate Release Tab PO PRN ×3 (01:40→20:15)
--- NOTE | 2018-06-20 01:56 | CON ---
DATE: 06/19/2018 CONSULTATION CHIEF COMPLAINT: Left knee replacement. HISTORY OF PRESENT ILLNESS: This is a 67-year-old male, who is known to me. The patient underwent a left knee replacement earlier today. The patient has a history of urethral strictures. Prior to the surgery, he reports he had been voiding without difficulty. Fishman catheterization was attempted after surgery and was unsuccessful. Since the patient has returned to the floor, he reports he voided a few times. Last void was just prior to my visit and he went 100 mL with a decent stream. He reports he is not having pain or difficulty voiding. He does not feel an urge to go at this time. He is having some moderate pain from the knee replacement. PAST MEDICAL HISTORY: Significant for urethral stricture, hypertension. MEDICATIONS: Currently include Ancef, Colace, Cozaar, Dilaudid, Eliquis, Lyrica, Norvasc, oxycodone, Senokot, Tylenol, vitamin D and Zofran. ALLERGIES: NO KNOWN DRUG ALLERGIES. FAMILY HISTORY: Noncontributory for this admission. SOCIAL HISTORY: No smoking or EtOH use. REVIEW OF SYSTEMS: This is as per the history of present illness. PHYSICAL EXAMINATION: GENERAL: The patient is awake and alert. He is answering questions. His is present. VITAL SIGNS: He is afebrile. Temp of 97.5, BP 156/81, pulse of 94. NECK: Supple. There is no adenopathy. CHEST: Exam of the chest revealed normal inspiratory effort. CARDIAC: Showed positive S1, S2. ABDOMINAL: The abdomen is obese, soft, nontender and nondistended. There is no hepatosplenomegaly. There is no costovertebral angle tenderness. The bladder is not palpably distended. : Phallus is normal. Scrotum is normal. Testes bilaterally descended, nontender, no masses. Epididymii are normal. LABORATORY EXAM: No current of blood work. No pertinent imaging was done. IMPRESSION AND PLAN: The patient appears to be voiding adequately at this time. He had a bladder scan done prior to voiding, which showed approximately 350 mL. The patient then voided at least 100 mL in the urinal, although some was lost. I re-scanned him and could not pear picker any significant volume in his bladder. He is currently comfortable and does not feel any urge to void. Plan would be observation at this time. I will recheck the patient in the morning. If the patient has symptomatic urinary retention, I will need to attempt a Fishman placement. He may need a urethral dilation or possibly to return to the operating room for a Fishman to be placed under vision given his history. Hopefully, the patient will void adequately and this will be unnecessary. Shakeel Lamb MD
[2018-06-20] MEDS: HYDROmorphone 1 mg/ml ISec IVP PRN ×3 (04:35→15:46)
[2018-06-20 07:18] LABS: BASO # 0.03 K/mm3 (0.0-2.0); BASO % 0.2 % (0.0-3.0); EOS % 0.3 % (1.5-5.0); GRAN # 9.52 (1.4-6.5); HEMOGLOBIN 14.5 g/dL (14.0-18.0); LYMPH # 1.4 (1.2-3.4); LYMPH % 10.8 % (22.0-35.0); MEAN CELL VOLUME 85.9 fl (80.0-105.0); MEAN CORPUSCULAR HEMOGLOBIN 29.3 pg (25.0-35.0); MEAN CORPUSCULAR HGB CONC 34.1 g/dl (31.0-37.0); MEAN PLATELET VOLUME 9.6 fl (7.0-11.0); MONO # 1.6 (0.1-0.6); MONO % 12.7 % (1.0-6.0); RBC 4.95 10^6/uL (3.5-6.1); RED CELL DISTRIBUTION WIDTH 14.6 % (11.5-14.5); WHITE BLOOD COUNT 12.5 10^3/ul (4.5-11.0)
[2018-06-20 07:53] LABS: LDL CHOLESTEROL 93 mg/dL (0-129)
[2018-06-20 07:58] LABS: BLOOD UREA NITROGEN 16 mg/dL (7-21); CALCIUM 8.5 mg/dL (8.4-10.5); GFR NON-AFRICAN AMERICAN > 60; HDL CHOLESTEROL 46 mg/dL (29-60)
[2018-06-20] MEDS: Nitroglycerin 2% Ointment Foilpak UD TOP SCH (08:02)
[2018-06-20 08:09] LABS: CK MB% 8.8 % (2.5-3.0); CK-MB 69.6 ng/mL (0.0-3.6)
--- NOTE | 2018-06-20 08:37 | CON ---
DATE: 06/19/2018 CARDIOLOGY CONSULTATION HISTORY: The patient is a 67-year-old male who presented for total left knee arthroscopy. Postoperatively, the patient developed some chest pain. He was noted to have new EKG changes with [address] elevations in V1 and V2, which is different from his previous. The patient's past medical history includes hypertension. No diabetes mellitus. No smoking. The patient underwent successful knee surgery earlier this year without issues. SOCIAL HISTORY: The patient does not smoke. REVIEW OF SYSTEMS: Fourteen-point review of systems is reviewed in detail. No cardiac history in the past. No dyspnea. Negative edema in the lower extremities. FAMILY HISTORY: Unclear for cardiac disease. PHYSICAL EXAMINATION: VITAL SIGNS: The blood pressure was 153/80, heart rate is in the 80s. NECK: Negative JVD. LUNGS: Without rales. HEART: Reveals S1, S2. EXTREMITIES: Without edema. EKG shows changes in V1, V2 compared to the previous. LABORATORY DATA: The white count is 12.5. Chemistries: BUN and creatinine are unremarkable. The troponin is 0.03. IMPRESSION: 1. Acute coronary syndrome. 2. High probability for coronary artery disease. 3. Hypertension. 4. Status post left knee surgery. PLAN: Given these findings, I considered taking the patient for an emergent cardiac catheterization last night. However, after an extensive discussion with Dr. Gilman, the orthopedic surgeon, the probability of bleeding in his knee was very high. Therefore, I chose to give him a trial of intensive medical therapy. We started him on sublingual nitroglycerin x2 with resolution of his chest pain. His hemodynamics improved. The patient is currently in the ICU, comfortable without symptoms. We will wait 24-48 hours once cleared by Orthopedic to bring him to the [facility] for PTCA and possible stenting. Risks, benefits were discussed with the patient in detail. Kenneth Garcia MD MTDJ Carlos
--- NOTE | 2018-06-20 09:41 | CARD ---
APPROVED REPORT Date of service: 06/20/2018 EKG Measurement Heart [id number] <Conclusion> Sinus rhythm with 1st degree AV block Incomplete right bundle branch block Septal infarct, age undetermined Cannot rule out Inferior infarct, age undetermined T wave abnormality, consider anterior ischemia Abnormal ECG
--- NOTE | 2018-06-20 09:43 | CP.PCM.PN ---
Subjective - Date & Time of Evaluation Date of Evaluation: 06/20/18 Time of Evaluation: 09:25 - Subjective Subjective: Patient in ICU seen and examined. Patient developed right sided chest pain last night with sweats. Found to have new EKG changes consistent with a STEMI. Dr. Garcia and Dr. Gardner spoke about emergent cardiac cath. Due to postoperative bleeding, will continue medical management for now. Patient denies any chest pain or shortness of breath at this time. Patient is voiding without any problems. afebrile WBC 12.5 Hgb 14.5 On examination, patient is sitting up in bed, appears comfortable. NAD. Left knee, the dressings are dry and intact with hemovac in place on suction and PICCO on. Thigh and calf are soft and non-tender. Patient is neurovascularly intact distally POD #1 s/p L TKA Acute coronary syndrome Cont medical management at this time Will follow up with Dr. Garcia Objective - Vital Signs/Intake and Output Vital Signs (last 24 hours): Temp Pulse Resp BP Pulse Ox 98.5 F 70 20 142/70 92 L 06/20/18 04:00 06/20/18 08:00 06/20/18 08:00 06/20/18 08:00 06/20/18 08:00 Intake and Output: 06/20/18 06/20/18 06:59 18:59 Intake Total 1140 Output Total 1355 Balance -215 - Medications Medications: Current Medications Acetaminophen (Tylenol 325mg Tab) 650 mg PO Q6H [facility] Last Admin: 06/20/18 06:13 Dose: 650 mg Apixaban (Eliquis) 2.5 mg PO BID [facility] PRN Reason: Protocol Aspirin (Aspirin Chewable) 81 mg PO DAILY [facility] Aspirin (Aspirin Chewable) 243 mg PO ONCE ONE Stop: 06/20/18 23:22 Last Admin: 06/19/18 23:31 Dose: 243 mg Cholecalciferol (Vitamin D) 2,000 intlu PO DAILY [facility] Diphenhydramine HCl (Benadryl) 25 mg PO HS PRN PRN Reason: Insomnia Last Admin: 06/19/18 23:29 Dose: 25 mg Docusate Sodium (Colace) 100 mg PO BID [facility] Last Admin: 06/19/18 18:13 Dose: 100 mg Hydromorphone HCl (Dilaudid) 1 mg IVP Q6 PRN PRN Reason: Pain, severe (8-10) Last Admin: 06/20/18 04:35 Dose: 1 mg Losartan Potassium (Cozaar) 50 mg PO DAILY [facility] Metoprolol Tartrate (Lopressor) 25 mg PO BID [facility] Last Admin: 06/19/18 21:55 Dose: 25 mg Nitroglycerin (Nitro-Bid 2% Oint) 1 ea TOP Q6 [facility] Last Admin: 06/20/18 08:02 Dose: 1 ea Non-Formulary Medication (Sildenafil Citrate [Viagra]) 50 mg PO QPM [facility] Last Admin: 06/19/18 19:34 Dose: Not Given Non-Formulary Medication (Lactobacillus Combination No.8 [Adult Probiotic]) 1 cap PO DAILY [facility] Ondansetron HCl (Zofran Inj) 4 mg IVP ONCE PRN PRN Reason: Nausea/Vomiting Oxycodone HCl (Oxycodone Immediate Release Tab) 5 mg PO Q4H PRN PRN Reason: Pain, moderate (4-7) Last Admin: 06/20/18 08:09 Dose: 5 mg Pregabalin (Lyrica) 50 mg PO BID [facility] Last Admin: 06/19/18 18:13 Dose: 50 mg Sennosides (Senokot Tab) 17.2 mg PO HS [facility] Last Admin: 06/19/18 22:20 Dose: Not Given - Labs Labs: 06/20/18 07:00 06/20/18 07:00 Assessment and Plan (1) Osteoarthritis of left knee Status: Acute (2) Hypertension Status: Chronic (3) Vitamin D deficiency Status: Chronic (4) Urethral stricture Status: Chronic
[2018-06-20] MEDS ORDERED: LACTOBACILLUS COMBINATION NO 8 PO SCH ×2 (10:00)
[2018-06-20] MEDS ORDERED: OLMESARTAN 20 MG PO SCH (10:00)
[2018-06-20] MEDS: Cholecalciferol 1,000 INTLU TAB PO SCH (10:00)
--- NOTE | 2018-06-20 11:20 | CARD ---
APPROVED REPORT Date of service: 06/19/2018 EKG Measurement Heart [id number] <Conclusion> Normal sinus rhythm ST elevation, consider anterior injury or acute infarct ACUTE [place] Abnormal ECG
--- NOTE | 2018-06-20 11:22 | CP.PCM.PN ---
Subjective - Date & Time of Evaluation Date of Evaluation: 06/20/18 Time of Evaluation: 11:15 - Subjective Subjective: Agree with PA note. PT s/p acute STEMI. Pt chest pain free now. LLE: NVI distally drain d/c'd Grimm dressing applied POD#1 Pt to undergo cardiac cath tomorrow. Discussed with Dr Garcia. Pt will need post op anti coagulation/anti platelet therapy. This significantly increases patient 's risk of post operative bleeding and hematoma formation which increases risk of knee pain, stiffness, and infection. If he would develop any of these complications, further surgery may be necessary. He understands this. For now, will hold of on PT today. Continue critical care management. Objective - Vital Signs/Intake and Output Vital Signs (last 24 hours): Temp Pulse Resp BP Pulse Ox 98.5 F 69 20 128/66 92 L 06/20/18 04:00 06/20/18 10:42 06/20/18 08:00 06/20/18 10:42 06/20/18 08:00 Intake and Output: 06/20/18 06/20/18 06:59 18:59 Intake Total 1140 Output Total 1355 Balance -215 - Medications Medications: Current Medications Acetaminophen (Tylenol 325mg Tab) 650 mg PO Q6H [facility] Last Admin: 06/20/18 06:13 Dose: 650 mg Apixaban (Eliquis) 2.5 mg PO BID [facility] PRN Reason: Protocol Last Admin: 06/20/18 10:40 Dose: 2.5 mg Aspirin (Aspirin Chewable) 81 mg PO DAILY [facility] Last Admin: 06/20/18 10:42 Dose: 81 mg Aspirin (Aspirin Chewable) 243 mg PO ONCE ONE Stop: 06/20/18 23:22 Last Admin: 06/19/18 23:31 Dose: 243 mg Cholecalciferol (Vitamin D) 2,000 intlu PO DAILY [facility] Last Admin: 06/20/18 10:00 Dose: 2,000 intlu Diphenhydramine HCl (Benadryl) 25 mg PO HS PRN PRN Reason: Insomnia Last Admin: 06/19/18 23:29 Dose: 25 mg Docusate Sodium (Colace) 100 mg PO BID [facility] Last Admin: 06/20/18 10:41 Dose: 100 mg Hydromorphone HCl (Dilaudid) 1 mg IVP Q6 PRN PRN Reason: Pain, severe (8-10) Last Admin: 06/20/18 10:52 Dose: 1 mg Lactobacillus Acidophilus (Bacid Acidophilus) 1 cap PO DAILY [facility] Losartan Potassium (Cozaar) 50 mg PO DAILY [facility] Last Admin: 06/20/18 10:42 Dose: 50 mg Metoprolol Tartrate (Lopressor) 25 mg PO BID [facility] Last Admin: 06/20/18 10:41 Dose: 25 mg Nitroglycerin (Nitro-Bid 2% Oint) 1 ea TOP Q6 [facility] Last Admin: 06/20/18 08:02 Dose: 1 ea Non-Formulary Medication (Sildenafil Citrate [Viagra]) 50 mg PO QPM [facility] Last Admin: 06/19/18 19:34 Dose: Not Given Ondansetron HCl (Zofran Inj) 4 mg IVP ONCE PRN PRN Reason: Nausea/Vomiting Oxycodone HCl (Oxycodone Immediate Release Tab) 5 mg PO Q4H PRN PRN Reason: Pain, moderate (4-7) Last Admin: 06/20/18 08:09 Dose: 5 mg Pregabalin (Lyrica) 50 mg PO BID [facility] Last Admin: 06/20/18 10:40 Dose: 50 mg Sennosides (Senokot Tab) 17.2 mg PO HS [facility] Last Admin: 06/19/18 22:20 Dose: Not Given - Labs Labs: 06/20/18 07:00 06/20/18 07:00
--- NOTE | 2018-06-20 12:02 | CP.CCUPN ---
<ChaseJeevan - Last Filed: 06/20/18 13:47> CCU Subjective - Physician Review Subjective (Free Text): 06/20/18 12:29 Jeevan Stone DO PGY1 - Internal Medicine Field Cane Scaler - ICU Progress Note Patient seen and examined at bedside No complaints of chest pain this morning, no complaints of palpitations Denies SOB, lightheaded ness, abd pain, n/v/d/c, Reports his knee is sore from surgery Remainder 12 system ROS is negative CCU Objective - Vital Signs / Intake & Output Vital Signs (Last 4 hours): Vital Signs Pulse BP 06/20/18 10:42 69 128/66 06/20/18 10:41 68 128/66 Intake and Output (Last 8hrs): Intake & Output 06/19/18 06/20/18 06/20/18 22:59 06:59 14:59 Intake Total 540 600 Output Total 500 855 Balance 40 -255 Weight 124.738 kg Intake: IV 100 abx 100 Oral 540 500 Output: Drainage 180 Right Knee 180 Urine 500 675 Urine, Voided 500 675 Other: Voiding Method Toilet # Bowel Movements 0 - Physical Exam Head: Positive for: Atraumatic, Normocephalic Pupils: Positive for: PERRL Extroacular Muscles: Positive for: EOMI Conjunctiva: Positive for: Normal Mouth: Positive for: Moist Mucous Membranes Respiratory/Chest: Positive for: Clear to Auscultation, Good Air Exchange. Negative for: Respiratory Distress, Accessory Muscle Use Cardiovascular: Positive for: Normal S1, S2, Tachycardic. Negative for: Murmurs Abdomen: Positive for: Other (Obese abdomen). Negative for: Tenderness, Distention, Normal Bowel Sounds, Peritoneal Signs Upper Extremity: Positive for: Normal Inspection. Negative for: Edema Lower Extremity: Positive for: Other (BL distal pulses difficult to palpate; Non edematous; Air boots in place) Neurological: Positive for: GCS=15, CN II-XII Intact, Speech Normal Skin: Positive for: Warm, Dry, Rashes, Normal Color Psychiatric: Positive for: Alert, Oriented x 3, Normal Insight, Normal Concentration - Medications Active Medications: Active Medications Generic Name Dose Route Start Last Admin Trade Name Freq PRN Reason Stop Dose Admin Acetaminophen 650 mg 06/19/18 12:15 06/20/18 06:13 Tylenol 325mg Tab PO 650 mg Q6H MARIANA Administration Apixaban 2.5 mg 06/20/18 10:00 06/20/18 10:40 Eliquis PO 2.5 mg BID MARIANA Administration Protocol Aspirin 81 mg 06/20/18 10:00 06/20/18 10:42 Aspirin Chewable PO 81 mg DAILY MARIANA Administration Aspirin 243 mg 06/20/18 23:21 06/19/18 23:31 Aspirin Chewable PO 06/20/18 23:22 243 mg ONCE ONE Administration Cholecalciferol 2,000 intlu 06/20/18 10:00 06/20/18 10:00 Vitamin D PO 2,000 intlu DAILY [facility] Administration Diphenhydramine HCl 25 mg 06/19/18 22:54 06/19/18 23:29 Benadryl PO 25 mg HS PRN Administration Insomnia Docusate Sodium 100 mg 06/19/18 18:00 06/20/18 10:41 Colace PO 100 mg BID [facility] Administration Hydromorphone HCl 1 mg 06/19/18 20:29 06/20/18 10:52 Dilaudid IVP 1 mg Q6 PRN Administration Pain, severe (8-10) Lactobacillus Acidophilus 1 cap 06/20/18 10:45 Bacid Acidophilus PO DAILY [facility] Losartan Potassium 50 mg 06/20/18 10:00 06/20/18 10:42 Cozaar PO 50 mg DAILY [facility] Administration Metoprolol Tartrate 25 mg 06/19/18 22:00 06/20/18 10:41 Lopressor PO 25 mg BID [facility] Administration Nitroglycerin 1 ea 06/20/18 00:00 06/20/18 08:02 Nitro-Bid 2% Oint TOP 1 ea Q6 [facility] Administration Non-Formulary Medication 50 mg 06/19/18 18:00 06/19/18 19:34 Sildenafil Citrate [Viagra] PO Not Given QPM [facility] Ondansetron HCl 4 mg 06/19/18 11:00 Zofran Inj IVP ONCE PRN Nausea/Vomiting Oxycodone HCl 5 mg 06/19/18 12:01 06/20/18 08:09 Oxycodone Immediate Release Tab PO 5 mg Q4H PRN Administration Pain, moderate (4-7) Pregabalin 50 mg 06/19/18 18:00 06/20/18 10:40 Lyrica PO 50 mg BID MARIANA Administration Sennosides 17.2 mg 06/19/18 22:00 06/19/18 22:20 Senokot Tab PO Not Given HS MARIANA - Patient Studies Lab Studies: Lab Studies 06/20/18 06/20/18 06/20/18 Range/Units 07:00 07:00 07:00 WBC 12.5 H D (4.5-11.0) 10^3/ul RBC 4.95 (3.5-6.1) 10^6/uL Hgb 14.5 (14.0-18.0) g/dL Hct 42.5 (42.0-52.0) % MCV 85.9 (80.0-105.0) fl MCH 29.3 (25.0-35.0) pg MCHC 34.1 (31.0-37.0) g/dl RDW 14.6 H (11.5-14.5) % Plt Count 255 (120.0-450.0) 10^3/uL MPV 9.6 (7.0-11.0) fl Gran % 76.0 H (50.0-68.0) % Lymph % (Auto) 10.8 L (22.0-35.0) % [place] % (Auto) 12.7 H (1.0-6.0) % Eos % (Auto) 0.3 L (1.5-5.0) % Baso % (Auto) 0.2 (0.0-3.0) % Gran # 9.52 H (1.4-6.5) Lymph # (Auto) 1.4 (1.2-3.4) [place] # (Auto) 1.6 H (0.1-0.6) Eos # (Auto) 0.0 (0.0-0.7) Baso # (Auto) 0.03 (0.0-2.0) K/mm3 Sodium 134 (132-148) mmol/L Potassium 4.0 (3.6-5.0) mmol/L Chloride 99 (98-107) mmol/L Carbon Dioxide 26 (21-33) mmol/L Anion Gap 13 (10-20) BUN 16 (7-21) mg/dL Creatinine 0.8 (0.8-1.5) mg/dl Est GFR ( Amer) > 60 Est GFR (Non-Af Amer) > 60 Random Glucose 121 H (70-110) mg/dL Hemoglobin A1c 5.6 (4.2-6.5) % Calcium 8.5 (8.4-10.5) mg/dL Lactate Dehydrogenase 592 (333-699) U/L Total Creatine Kinase 794 H (35-230) U/L CK-MB (CK-2) 69.6 H (0.0-3.6) ng/mL CK-MB (CK-2) % 8.8 H (2.5-3.0) % Troponin I 11.90 H* D ng/mL Triglycerides 74 (35-160) mg/dL Cholesterol 163 (130-200) mg/dL LDL Cholesterol Direct 93 (0-129) mg/dL HDL Cholesterol 46 (29-60) mg/dL 06/19/18 06/19/18 Range/Units 21:43 20:43 WBC 16.3 H D (4.5-11.0) 10^3/ul RBC 5.36 (3.5-6.1) 10^6/uL Hgb 15.9 (14.0-18.0) g/dL Hct 45.9 (42.0-52.0) % MCV 85.6 (80.0-105.0) fl MCH 29.7 (25.0-35.0) pg MCHC 34.6 (31.0-37.0) g/dl RDW 14.6 H (11.5-14.5) % Plt Count 278 (120.0-450.0) 10^3/uL MPV 10.2 (7.0-11.0) fl Gran % (50.0-68.0) % Lymph % (Auto) (22.0-35.0) % [place] % (Auto) (1.0-6.0) % Eos % (Auto) (1.5-5.0) % Baso % (Auto) (0.0-3.0) % Gran # (1.4-6.5) Lymph # (Auto) (1.2-3.4) [place] # (Auto) (0.1-0.6) Eos # (Auto) (0.0-0.7) Baso # (Auto) (0.0-2.0) K/mm3 Sodium (132-148) mmol/L Potassium (3.6-5.0) mmol/L Chloride (98-107) mmol/L Carbon Dioxide (21-33) mmol/L Anion Gap (10-20) BUN (7-21) mg/dL Creatinine (0.8-1.5) mg/dl Est GFR ( Amer) Est GFR (Non-Af Amer) Random Glucose (70-110) mg/dL Hemoglobin A1c (4.2-6.5) % Calcium (8.4-10.5) mg/dL Lactate Dehydrogenase 532 (333-699) U/L Total Creatine Kinase 175 (35-230) U/L CK-MB (CK-2) (0.0-3.6) ng/mL CK-MB (CK-2) % (2.5-3.0) % Troponin I 0.03 ng/mL Triglycerides (35-160) mg/dL Cholesterol (130-200) mg/dL LDL Cholesterol Direct (0-129) mg/dL HDL Cholesterol (29-60) mg/dL Laboratory Results - last 24 hr 06/19/18 06/19/18 06/20/18 20:43 21:43 07:00 WBC 16.3 H D 12.5 H D RBC 5.36 4.95 Hgb 15.9 14.5 Hct 45.9 42.5 MCV 85.6 85.9 MCH 29.7 29.3 MCHC 34.6 34.1 RDW 14.6 H 14.6 H Plt Count 278 255 MPV 10.2 9.6 Gran % 76.0 H Lymph % (Auto) 10.8 L [place] % (Auto) 12.7 H Eos % (Auto) 0.3 L Baso % (Auto) 0.2 Gran # 9.52 H Lymph # (Auto) 1.4 [place] # (Auto) 1.6 H Eos # (Auto) 0.0 Baso # (Auto) 0.03 Sodium Potassium Chloride Carbon Dioxide Anion Gap BUN Creatinine Est GFR ( Amer) Est GFR (Non-Af Amer) Random Glucose Hemoglobin A1c Calcium Lactate Dehydrogenase 532 Total Creatine Kinase 175 CK-MB (CK-2) CK-MB (CK-2) % Troponin I 0.03 Triglycerides Cholesterol LDL Cholesterol Direct HDL Cholesterol 06/20/18 06/20/18 07:00 07:00 WBC RBC Hgb Hct MCV MCH MCHC RDW Plt Count MPV Gran % Lymph % (Auto) [place] % (Auto) Eos % (Auto) Baso % (Auto) Gran # Lymph # (Auto) [place] # (Auto) Eos # (Auto) Baso # (Auto) Sodium 134 Potassium 4.0 Chloride 99 Carbon Dioxide 26 Anion Gap 13 BUN 16 Creatinine 0.8 Est GFR ( Amer) > 60 Est GFR (Non-Af Amer) > 60 Random Glucose 121 H Hemoglobin A1c 5.6 Calcium 8.5 Lactate Dehydrogenase 592 Total Creatine Kinase 794 H CK-MB (CK-2) 69.6 H CK-MB (CK-2) % 8.8 H Troponin I 11.90 H* D Triglycerides 74 Cholesterol 163 LDL Cholesterol Direct 93 HDL Cholesterol 46 EKG/Cardiology Studies: Cardiology / EKG Studies 06/19/18 19:28 ELECTROCARDIOGRAM Stat Comment: Reason For Exam: cp 06/20/18 07:00 EKG [ELECTROCARDIOGRAM] DAILY Comment: Reason For Exam: stemi Review of Systems - Review of Systems All systems: reviewed and no additional remarkable complaints except Review of Systems: As per HPI Critical Care Progress Note - Nutrition Nutrition: Nutrition Category Date Time Status Heart Healthy Diet [DIET] Diets 06/20/18 Breakfast Active Assessment/Plan - Assessment and Plan (Free Text) Assessment: 67M s/p L total knee arhtroscopy 06/19 admitted to ICU for STEMI hours following procedure Plan: Neurology: AAO3 now and at baseline No FND Reorient as needed Pulm: RR stable satting well on room air Maintain O2 Sat >95% Cardio: ST elevations in anterior leads Troponin elevation 0.03 > 11.90 No c/o chest pain or palpitations this AM EKG on 06/[address]show[address] elevation on the anterior leads suspicious for STEMI. Dr. Garcia contacted on 06/19, code heart not called due to, as per Dr Gilman the risk of hemorrhaging to the left knee since patient had the left knee replacement Given SL nitro yesterday; CP resolved EKG on 06/[address] elevations however elevations decreased relative to EKG EKG on 06/20 1100 w/o ST elevations Continued w/ nitropaste, lopressor 25BID, ASA, Losartan Code heart called today as patient trops showed dramatic elevation Will follow up post cath Heart health diet. Heme: Resumed eliquis 2.5mg BID per ortho today for DVT ppx and Hx of DVT ID: WBC resolving (ML reactive 2/2 surgery) Afebrile over night Continue monitoring for s/s infection Renal: stable renal function, continue to monitor Endo: maintain euglycemia. Hypovitaminosis- continue with vitamin D GI: Colace and Senokot to prevent constipation. MSK: S/p TKR- pain control as per ortho- Dilaudid 1 q6 prn, oxy 5 mg q4 prn. GI/DVT PPx: Famotidine/ Eliquis as above Pt. seen, examined, and discussed w/ attending physician Dr. Jerry Stone DO PGY1 Internal Medicine Field Cane Scaler - Pager [phone] - Date & Time Date: 06/20/18 Time: 14:45 <Russel Edwards - Last Filed: 06/20/18 15:56> CCU Objective - Vital Signs / Intake & Output Vital Signs (Last 4 hours): Vital Signs Temp Pulse Resp BP Pulse Ox 06/20/18 15:45 77 13 156/77 H 97 06/20/18 15:30 74 22 160/94 H 98 06/20/18 15:15 78 26 H 145/83 98 06/20/18 15:00 74 25 H 141/79 99 06/20/18 14:45 74 36 H 155/86 H 99 06/20/18 14:30 74 16 150/77 97 06/20/18 14:15 72 150/74 98 06/20/18 14:00 72 17 147/78 99 06/20/18 13:45 72 141/70 98 06/20/18 13:39 80 20 137/74 06/20/18 12:01 74 20 109/42 L 95 06/20/18 12:00 97.9 F 74 27 H 96 Intake and Output (Last 8hrs): Intake & Output 06/20/18 06/20/18 06/20/18 06:59 14:59 22:59 Intake Total 600 Output Total 855 Balance -255 Intake: IV 100 abx 100 Oral 500 Output: Drainage 180 Right Knee 180 Urine 675 Urine, Voided 675 - Medications Active Medications: Active Medications Generic Name Dose Route Start Last Admin Trade Name Freq PRN Reason Stop Dose Admin Acetaminophen 650 mg 06/19/18 12:15 06/20/18 06:13 Tylenol 325mg Tab PO 650 mg Q6H [facility] Administration Aspirin 243 mg 06/20/18 23:21 06/19/18 23:31 Aspirin Chewable PO 06/20/18 23:22 243 mg ONCE ONE Administration Aspirin 81 mg 06/21/18 10:00 Ecotrin PO DAILY [facility] Atorvastatin Calcium 40 mg 06/20/18 17:00 Lipitor PO DIN [facility] Cholecalciferol 2,000 intlu 06/20/18 10:00 06/20/18 10:00 Vitamin D PO 2,000 intlu DAILY [facility] Administration Clopidogrel Bisulfate 75 mg 06/21/18 10:00 Plavix PO DAILY [facility] Diphenhydramine HCl 25 mg 06/19/18 22:54 06/19/18 23:29 Benadryl PO 25 mg HS PRN Administration Insomnia Famotidine 40 mg 06/20/18 22:00 Pepcid PO HS [facility] Hydromorphone HCl 1 mg 06/19/18 20:29 06/20/18 15:46 Dilaudid IVP 1 mg Q6 PRN Administration Pain, severe (8-10) Sodium Chloride 1,000 mls @ 100 mls/hr 06/20/18 13:45 Sodium Chloride 0.9% IV 06/20/18 19:00 .Q10H [facility] Lactobacillus Acidophilus 1 cap 06/20/18 10:45 Bacid Acidophilus PO DAILY [facility] Losartan Potassium 50 mg 06/20/18 10:00 06/20/18 10:42 Cozaar PO 50 mg DAILY [facility] Administration Metoprolol Tartrate 25 mg 06/19/18 22:00 06/20/18 10:41 Lopressor PO 25 mg BID [facility] Administration Non-Formulary Medication 50 mg 06/19/18 18:00 06/19/18 19:34 Sildenafil Citrate [Viagra] PO Not Given QPM [facility] Ondansetron HCl 4 mg 06/19/18 11:00 Zofran Inj IVP ONCE PRN Nausea/Vomiting Oxycodone HCl 5 mg 06/19/18 12:01 06/20/18 08:09 Oxycodone Immediate Release Tab PO 5 mg Q4H PRN Administration Pain, moderate (4-7) Pregabalin 50 mg 06/19/18 18:00 06/20/18 10:40 Lyrica PO 50 mg BID [facility]IA[facility] Administration Sennosides 17.2 mg 06/19/18 22:00 06/19/18 22:20 Senokot Tab PO Not Given HS [facility] - Patient Studies Lab Studies: Lab Studies 06/20/18 06/20/18 06/20/18 Range/Units 07:00 07:00 07:00 WBC 12.5 H D (4.5-11.0) 10^3/ul RBC 4.95 (3.5-6.1) 10^6/uL Hgb 14.5 (14.0-18.0) g/dL Hct 42.5 (42.0-52.0) % MCV 85.9 (80.0-105.0) fl MCH 29.3 (25.0-35.0) pg MCHC 34.1 (31.0-37.0) g/dl RDW 14.6 H (11.5-14.5) % Plt Count 255 (120.0-450.0) 10^3/uL MPV 9.6 (7.0-11.0) fl Gran % 76.0 H (50.0-68.0) % Lymph % (Auto) 10.8 L (22.0-35.0) % [place] % (Auto) 12.7 H (1.0-6.0) % Eos % (Auto) 0.3 L (1.5-5.0) % Baso % (Auto) 0.2 (0.0-3.0) % Gran # 9.52 H (1.4-6.5) Lymph # (Auto) 1.4 (1.2-3.4) [place] # (Auto) 1.6 H (0.1-0.6) Eos # (Auto) 0.0 (0.0-0.7) Baso # (Auto) 0.03 (0.0-2.0) K/mm3 Sodium 134 (132-148) mmol/L Potassium 4.0 (3.6-5.0) mmol/L Chloride 99 (98-107) mmol/L Carbon Dioxide 26 (21-33) mmol/L Anion Gap 13 (10-20) BUN 16 (7-21) mg/dL Creatinine 0.8 (0.8-1.5) mg/dl Est GFR ( Amer) > 60 Est GFR (Non-Af Amer) > 60 Random Glucose 121 H (70-110) mg/dL Hemoglobin A1c 5.6 (4.2-6.5) % Calcium 8.5 (8.4-10.5) mg/dL Lactate Dehydrogenase 592 (333-699) U/L Total Creatine Kinase 794 H (35-230) U/L CK-MB (CK-2) 69.6 H (0.0-3.6) ng/mL CK-MB (CK-2) % 8.8 H (2.5-3.0) % Troponin I 11.90 H* D ng/mL Triglycerides 74 (35-160) mg/dL Cholesterol 163 (130-200) mg/dL LDL Cholesterol Direct 93 (0-129) mg/dL HDL Cholesterol 46 (29-60) mg/dL 06/19/18 06/19/18 Range/Units 21:43 20:43 WBC 16.3 H D (4.5-11.0) 10^3/ul RBC 5.36 (3.5-6.1) 10^6/uL Hgb 15.9 (14.0-18.0) g/dL Hct 45.9 (42.0-52.0) % MCV 85.6 (80.0-105.0) fl MCH 29.7 (25.0-35.0) pg MCHC 34.6 (31.0-37.0) g/dl RDW 14.6 H (11.5-14.5) % Plt Count 278 (120.0-450.0) 10^3/uL MPV 10.2 (7.0-11.0) fl Gran % (50.0-68.0) % Lymph % (Auto) (22.0-35.0) % [place] % (Auto) (1.0-6.0) % Eos % (Auto) (1.5-5.0) % Baso % (Auto) (0.0-3.0) % Gran # (1.4-6.5) Lymph # (Auto) (1.2-3.4) [place] # (Auto) (0.1-0.6) Eos # (Auto) (0.0-0.7) Baso # (Auto) (0.0-2.0) K/mm3 Sodium (132-148) mmol/L Potassium (3.6-5.0) mmol/L Chloride (98-107) mmol/L Carbon Dioxide (21-33) mmol/L Anion Gap (10-20) BUN (7-21) mg/dL Creatinine (0.8-1.5) mg/dl Est GFR ( Amer) Est GFR (Non-Af Amer) Random Glucose (70-110) mg/dL Hemoglobin A1c (4.2-6.5) % Calcium (8.4-10.5) mg/dL Lactate Dehydrogenase 532 (333-699) U/L Total Creatine Kinase 175 (35-230) U/L CK-MB (CK-2) (0.0-3.6) ng/mL CK-MB (CK-2) % (2.5-3.0) % Troponin I 0.03 ng/mL Triglycerides (35-160) mg/dL Cholesterol (130-200) mg/dL LDL Cholesterol Direct (0-129) mg/dL HDL Cholesterol (29-60) mg/dL Laboratory Results - last 24 hr 06/19/18 06/19/18 06/20/18 20:43 21:43 07:00 WBC 16.3 H D 12.5 H D RBC 5.36 4.95 Hgb 15.9 14.5 Hct 45.9 42.5 MCV 85.6 85.9 MCH 29.7 29.3 MCHC 34.6 34.1 RDW 14.6 H 14.6 H Plt Count 278 255 MPV 10.2 9.6 Gran % 76.0 H Lymph % (Auto) 10.8 L [place] % (Auto) 12.7 H Eos % (Auto) 0.3 L Baso % (Auto) 0.2 Gran # 9.52 H Lymph # (Auto) 1.4 [place] # (Auto) 1.6 H Eos # (Auto) 0.0 Baso # (Auto) 0.03 Sodium Potassium Chloride Carbon Dioxide Anion Gap BUN Creatinine Est GFR ( Amer) Est GFR (Non-Af Amer) Random Glucose Hemoglobin A1c Calcium Lactate Dehydrogenase 532 Total Creatine Kinase 175 CK-MB (CK-2) CK-MB (CK-2) % Troponin I 0.03 Triglycerides Cholesterol LDL Cholesterol Direct HDL Cholesterol 06/20/18 06/20/18 07:00 07:00 WBC RBC Hgb Hct MCV MCH MCHC RDW Plt Count MPV Gran % Lymph % (Auto) [place] % (Auto) Eos % (Auto) Baso % (Auto) Gran # Lymph # (Auto) [place] # (Auto) Eos # (Auto) Baso # (Auto) Sodium 134 Potassium 4.0 Chloride 99 Carbon Dioxide 26 Anion Gap 13 BUN 16 Creatinine 0.8 Est GFR ( Amer) > 60 Est GFR (Non-Af Amer) > 60 Random Glucose 121 H Hemoglobin A1c 5.6 Calcium 8.5 Lactate Dehydrogenase 592 Total Creatine Kinase 794 H CK-MB (CK-2) 69.6 H CK-MB (CK-2) % 8.8 H Troponin I 11.90 H* D Triglycerides 74 Cholesterol 163 LDL Cholesterol Direct 93 HDL Cholesterol 46 EKG/Cardiology Studies: Cardiology / EKG Studies 06/19/18 19:28 ELECTROCARDIOGRAM Stat Comment: Reason For Exam: cp 06/20/18 07:00 EKG [ELECTROCARDIOGRAM] DAILY Comment: Reason For Exam: stemi 06/20/18 12:15 EKG [ELECTROCARDIOGRAM] Stat Comment: Reason For Exam: Elevated trop 06/20/18 13:44 ELECTROCARDIOGRAM Urgent Comment: 12 lead EKG upon arrival in unit Reason For Exam: post ptca 06/21/18 13:45 ELECTROCARDIOGRAM DAILY Comment: Reason For Exam: chest pain ELECTROCARDIOGRAM DAILY Comment: Reason For Exam: chest pain Critical Care Progress Note - Nutrition Nutrition: Nutrition Category Date Time Status Heart Healthy Diet [DIET] Diets 06/20/18 Breakfast Active Addendum Addendum: 06/20/18 15:56 ICU Attending Addendum: Patient seen and examined. Case reviewed on round with housestaff. Agree with resident note above with the following additions/exceptions: 67M with htn admitted and now s/p left knee replacement yesterdy. Overnight developed chest pain, found to have ant wall STEMI. Initially conservate management recommended given high risk of bleeding at surgical site however TNI rising. Cardio took patient to cath this AM. WIll follow up post cath. Rest of care as noted above. Russel Edwards MD Gunnery/Ordnance Officer
[2018-06-20] MEDS ORDERED: Midazolam 2 MG/2 ML VIAL ONE ×3 (12:24→12:50)
[2018-06-20] MEDS ORDERED: Phenylephrine 10 mg/ml Inj ONE (12:24)
[2018-06-20] MEDS ORDERED: Iodixanol 320 MG/ML 200 ML BOTTLE IV ONE (12:25)
[2018-06-20] MEDS ORDERED: Heparin 2,000 ML IV ONE (12:25)
[2018-06-20] MEDS ORDERED: Nitroglycerin 50mg in D5W 0 MG/0 ML BOTTLE IV ONE (12:25)
[2018-06-20] MEDS ORDERED: Iodixanol 320 MG/ML 100 ML BOTTLE IV ONE (12:25)
[2018-06-20] MEDS ORDERED: Iohexol 350mgl/ml 50 ML ONE (12:25)
[2018-06-20] MEDS ORDERED: Eptifibatide 20 mg/10mL Inj IVP ONE ×2 (12:44)
[2018-06-20] MEDS ORDERED: Sodium Chloride 0.9% 1,000 ML IV SCH (13:45)
--- NOTE | 2018-06-20 14:29 | CARDCATH ---
PROCEDURE DATE: 06/20/2018 EMERGENCY CARDIAC CATH AND PTCA HISTORY: The patient is a 67-year-old male who presented to the hospital for an elective knee surgery. Post knee surgery, the patient developed chest pain. After analysis for risk and benefit, it was decided to try to treat him medically given his high risk of bleed from his from his knee surgery. This morning, the patient was in the ICU. His troponins were noted to be to be on the arise and peaked to compared to 0.03 yesterday. [address] showed more ST elevations in V1 and V2. Because of this, code heart was called and the patient was brought to the geophysical laboratory supervisor. PROCEDURE: Emergency left heart catheterization with coronary arteriography, left ventriculogram and percutaneous transluminal coronary angioplasty and stent of an left anterior descending artery. The right femoral artery was cannulated with a 6-[place] sheath. There were no complications. I performed moderate sedation, which included the presence of an independent trained observer that assisted in monitoring the patient's level of consciousness and physiologic status. After administration of Versed and fentanyl, my intra-service time was 45 minutes. The sheath was exchanged for a long 7-[place] sheath. The findings on catheterization revealed a left ventricle that contracted normally. Estimated ejection fraction is 60%. His coronary anatomy revealed a codominant circulation. The RCA revealed intimal irregularities without significant stenoses. The left main artery was unremarkable. The circumflex artery and obtuse marginal branches were free of significant disease. The LAD at the takeoff of the first septal wine sales representative revealed an essentially 80% stenoses with evidence for a fractured plaque. The lesion also involved a 95% stenoses at the takeoff of the septal wine sales representative. The patient was started on intravenous Angiomax and received two doses of Integrilin boluses without a drip. The 7-[place] guiding catheter was placed to the ostium of the left main artery. An 0.014 ATW wire was used to cross the critical lesion in the septal wine sales representative. A second wire was placed in the LAD past critical lesion. A 2 balloon was utilized to dilate the 95% stenoses at the takeoff of the septal wine sales representative. This was followed by implantation of a 4 x 12 mm bare-metal stent which was placed in the proximal/mid LAD region at 12 atmospheres of pressure. Repeat coronary arteriography revealed an excellent result with no residual stenosis and MARGI III flow in the LAD. There was a residual stenoses in the ostium of the septal wine sales representative; however, there was MARGI III flow down both branches of the branching septal wine sales representative. Angio-Seal was used to close the femoral artery site. The patient tolerated the procedure well. In summary, the emergency cardiac catheterization and PTCA of the LAD were successful using a bare-metal stent. A bare-metal stent was utilized given his risk of hemarthrosis after his knee surgery. This would allow us to withhold his Plavix if any procedure needed to be done on his knee. The size of the stent makes the restenosis rate smaller and lessens the advantage of a drug-eluting stent. LV function is normal. Single vessel CAD. Given these findings, the patient will need to remain on aspirin indefinitely and Plavix for three to four weeks. The patient will need to undergo a cardiac risk reduction program. Kenneth Garcia MD
--- NOTE | 2018-06-20 15:26 | CARD ---
APPROVED REPORT Date of service: 06/20/2018 EKG Measurement Heart [id number] <Conclusion> Normal sinus rhythm Cannot rule out Inferior infarct, age undetermined Abnormal ECG
--- NOTE | 2018-06-20 18:32 | CARD ---
APPROVED REPORT Date of service: 06/20/2018 EKG Measurement Heart [id number] <Conclusion> Normal sinus rhythm Possible Inferior infarct, age undetermined T wave abnormality, consider anterior ischemia Abnormal ECG
[2018-06-21] MEDS: HYDROmorphone 1 mg/ml ISec IVP PRN ×2 (01:08→14:06)
[2018-06-21 06:55] LABS: BASO # 0.03 K/mm3 (0.0-2.0); BASO % 0.2 % (0.0-3.0); EOS # 0.2 (0.0-0.7); EOS % 1.2 % (1.5-5.0); GRAN # 9.76 (1.4-6.5); GRAN % 75.4 % (50.0-68.0); HEMOGLOBIN 13.9 g/dL (14.0-18.0); LYMPH # 1.3 (1.2-3.4); LYMPH % 9.9 % (22.0-35.0); MEAN CELL VOLUME 86.2 fl (80.0-105.0); MEAN CORPUSCULAR HEMOGLOBIN 29.5 pg (25.0-35.0); MEAN CORPUSCULAR HGB CONC 34.2 g/dl (31.0-37.0); MEAN PLATELET VOLUME 9.8 fl (7.0-11.0); MONO # 1.7 (0.1-0.6); MONO % 13.3 % (1.0-6.0); RBC 4.71 10^6/uL (3.5-6.1); RED CELL DISTRIBUTION WIDTH 14.6 % (11.5-14.5)
[2018-06-21 07:18] LABS: BLOOD UREA NITROGEN 13 mg/dL (7-21); CALCIUM 8.7 mg/dL (8.4-10.5); GFR NON-AFRICAN AMERICAN > 60
--- NOTE | 2018-06-21 07:57 | CON ---
DATE: 06/21/2018 MEDICAL CONSULTATION HISTORY OF PRESENT ILLNESS: The patient is a 67-year-old male who was admitted to Dr. Wilfrid Gardner's service, the orthopedist, for total left knee replacement. The patient is seen in the office for several years. He is diligent with his medications and the followup visits. His past medical history is positive for hypertension, carcinoma of the prostate in 2012, left knee arthroscopy for torn ACL, bilateral shoulder surgery, status post appendectomy and a history of urethral strictures and underwent a total right knee replacement in 12/2017. He underwent the left knee replacement successfully. He was up on the floor for several hours postoperatively and in the evening hours yesterday developed right-sided chest pain. This was eventually associated with diaphoresis and mild shortness of breath. EKG showed some anterior ST-T wave changes consistent with ischemia. At that point, the patient was transferred to the Intensive Care Unit. Dr. Garcia who was on-call for [facility] was contacted. Because of his recent knee replacement within the past 12 hours, Dr. Gardner suggested not to undergo coronary catheterization for fear of bleeding into the new knee. The patient was treated with nitroglycerin and his pain subsided. When seen this morning in the Intensive Care Unit, he is awake, alert and oriented. He denies any further chest pain, shortness of breath or diaphoresis. His is at bedside during the hospital visit with the patient. His son and [id number] entered the area to visit. MEDICATIONS: The patient's medications on admission included amlodipine 10 mg, Benicar 20 mg, Viagra 50 mg as needed and probiotics. ALLERGIES: HE HAS NO KNOWN MEDICAL ALLERGIES. SOCIAL HISTORY: He never smoked. He drinks alcohol only socially. Follows a regular diet. PHYSICAL EXAMINATION: VITAL SIGNS: From office notes, on physical exam, he is 68 inches tall, weight 270 pounds, blood pressure of 140/80 and heart rate of 84 beats per minute. LUNGS: When seen in the Intensive Care Unit, his lungs were clear. HEART: Regular. ABDOMEN: Round, soft, nontender. EXTREMITIES: Free of cyanosis, clubbing or edema. EXTREMITIES: Dressing status post left knee replacement is in place. LABORATORY DATA: His troponins this morning were elevated at 11.7. EKG showed ST-T wave elevations consistent with anterior wall myocardial infarction. ASSESSMENT: So the patient will continue to be followed closely. We are awaiting clearance from Dr. Gardner for coronary catheterization. Chris Prater MD YESENIA
--- NOTE | 2018-06-21 08:05 | CP.CCUPN ---
<ChaseJeevan - Last Filed: 06/21/18 12:16> CCU Subjective - Physician Review Subjective (Free Text): Jeevan Stone DO PGY1 - Internal Medicine [employer] Inspector - ICU Progress Note Patient was seen and examined at bedside No acute events overnight No complaints voiced this AM Denies any chest pain sob cough abd pain N/V/D/C Urinary discomfort 12 system ROS is otherwise negative 06/21/18 12:16 CCU Objective - Vital Signs / Intake & Output Vital Signs (Last 4 hours): Vital Signs Temp 06/21/18 07:28 99.4 F Intake and Output (Last 8hrs): Intake & Output 06/20/18 06/21/18 06/21/18 22:59 06:59 14:59 Intake Total 1300 Output Total 2500 Balance -1200 Intake: IV 600 Left Hand 600 Oral 700 Output: Urine 2500 Urine, Voided 2500 Other: # Bowel Movements 0 - Physical Exam Head: Positive for: Atraumatic, Normocephalic Pupils: Positive for: PERRL Extroacular Muscles: Positive for: EOMI Conjunctiva: Positive for: Normal Mouth: Positive for: Moist Mucous Membranes Respiratory/Chest: Positive for: Clear to Auscultation, Good Air Exchange. Negative for: Respiratory Distress, Accessory Muscle Use Cardiovascular: Positive for: Normal S1, S2, Tachycardic. Negative for: Murmurs Abdomen: Positive for: Other (Obese abdomen). Negative for: Tenderness, Distention, Normal Bowel Sounds, Peritoneal Signs Upper Extremity: Positive for: Normal Inspection. Negative for: Edema Lower Extremity: Positive for: Capillary Refill < 2 s (R foot ), Other (BL distal pulses difficult to palpate; Non edematous; Air boots in place) Neurological: Positive for: GCS=15, CN II-XII Intact, Speech Normal Skin: Positive for: Warm, Dry, Rashes, Normal Color Psychiatric: Positive for: Alert, Oriented x 3, Normal Insight, Normal Concentration - Medications Active Medications: Active Medications Generic Name Dose Route Start Last Admin Trade Name Freq PRN Reason Stop Dose Admin Acetaminophen 650 mg 06/19/18 12:15 06/21/18 07:28 Tylenol 325mg Tab PO 650 mg Q6H MARIANA Administration Aspirin 81 mg 06/21/18 10:00 Ecotrin PO DAILY MARIANA Atorvastatin Calcium 40 mg 06/20/18 17:00 06/20/18 19:28 Lipitor PO 40 mg DIN MARIANA Administration Cholecalciferol 2,000 intlu 06/20/18 10:00 06/20/18 10:00 Vitamin D PO 2,000 intlu DAILY MARIANA Administration Clopidogrel Bisulfate 75 mg 06/21/18 10:00 Plavix PO DAILY MARIANA Diphenhydramine HCl 25 mg 06/19/18 22:54 06/19/18 23:29 Benadryl PO 25 mg HS PRN Administration Insomnia Famotidine 40 mg 06/20/18 22:00 06/20/18 21:07 Pepcid PO 40 mg HS MARIANA Administration Hydromorphone HCl 1 mg 06/19/18 20:29 06/21/18 01:08 Dilaudid IVP 1 mg Q6 PRN Administration Pain, severe (8-10) Lactobacillus Acidophilus 1 cap 06/20/18 10:45 Bacid Acidophilus PO DAILY [facility] Losartan Potassium 50 mg 06/20/18 10:00 06/20/18 10:42 Cozaar PO 50 mg DAILY [facility] Administration Metoprolol Tartrate 25 mg 06/19/18 22:00 06/20/18 20:42 Lopressor PO 25 mg BID [facility] Administration Non-Formulary Medication 50 mg 06/19/18 18:00 06/19/18 19:34 Sildenafil Citrate [Viagra] PO Not Given QPM [facility] Ondansetron HCl 4 mg 06/19/18 11:00 Zofran Inj IVP ONCE PRN Nausea/Vomiting Oxycodone HCl 5 mg 06/19/18 12:01 06/20/18 20:15 Oxycodone Immediate Release Tab PO 5 mg Q4H PRN Administration Pain, moderate (4-7) Pregabalin 50 mg 06/19/18 18:00 06/20/18 19:28 Lyrica PO 50 mg BID [facility] Administration Sennosides 17.2 mg 06/19/18 22:00 06/20/18 21:06 Senokot Tab PO 17.2 mg HS MARIANA Administration - Patient Studies Lab Studies: Lab Studies 06/21/18 06/21/18 06/20/18 Range/Units 06:00 06:00 07:00 WBC 13.0 H (4.5-11.0) 10^3/ul RBC 4.71 (3.5-6.1) 10^6/uL Hgb 13.9 L (14.0-18.0) g/dL Hct 40.6 L (42.0-52.0) % MCV 86.2 (80.0-105.0) fl MCH 29.5 (25.0-35.0) pg MCHC 34.2 (31.0-37.0) g/dl RDW 14.6 H (11.5-14.5) % Plt Count 210 (120.0-450.0) 10^3/uL MPV 9.8 (7.0-11.0) fl Gran % 75.4 H (50.0-68.0) % Lymph % (Auto) 9.9 L (22.0-35.0) % [place] % (Auto) 13.3 H (1.0-6.0) % Eos % (Auto) 1.2 L (1.5-5.0) % Baso % (Auto) 0.2 (0.0-3.0) % Gran # 9.76 H (1.4-6.5) Lymph # (Auto) 1.3 (1.2-3.4) [place] # (Auto) 1.7 H (0.1-0.6) Eos # (Auto) 0.2 (0.0-0.7) Baso # (Auto) 0.03 (0.0-2.0) K/mm3 Sodium 134 (132-148) mmol/L Potassium 4.1 (3.6-5.0) mmol/L Chloride 100 (98-107) mmol/L Carbon Dioxide 26 (21-33) mmol/L Anion Gap 12 (10-20) BUN 13 (7-21) mg/dL Creatinine 0.8 (0.8-1.5) mg/dl Est GFR ( Amer) > 60 Est GFR (Non-Af Amer) > 60 Random Glucose 124 H (70-110) mg/dL Hemoglobin A1c 5.6 (4.2-6.5) % Calcium 8.7 (8.4-10.5) mg/dL CK-MB (CK-2) (0.0-3.6) ng/mL CK-MB (CK-2) % (2.5-3.0) % 06/20/18 Range/Units 07:00 WBC (4.5-11.0) 10^3/ul RBC (3.5-6.1) 10^6/uL Hgb (14.0-18.0) g/dL Hct (42.0-52.0) % MCV (80.0-105.0) fl MCH (25.0-35.0) pg MCHC (31.0-37.0) g/dl RDW (11.5-14.5) % Plt Count (120.0-450.0) 10^3/uL MPV (7.0-11.0) fl Gran % (50.0-68.0) % Lymph % (Auto) (22.0-35.0) % [place] % (Auto) (1.0-6.0) % Eos % (Auto) (1.5-5.0) % Baso % (Auto) (0.0-3.0) % Gran # (1.4-6.5) Lymph # (Auto) (1.2-3.4) [place] # (Auto) (0.1-0.6) Eos # (Auto) (0.0-0.7) Baso # (Auto) (0.0-2.0) K/mm3 Sodium (132-148) mmol/L Potassium (3.6-5.0) mmol/L Chloride (98-107) mmol/L Carbon Dioxide (21-33) mmol/L Anion Gap (10-20) BUN (7-21) mg/dL Creatinine (0.8-1.5) mg/dl Est GFR ( Amer) Est GFR (Non-Af Amer) Random Glucose (70-110) mg/dL Hemoglobin A1c (4.2-6.5) % Calcium (8.4-10.5) mg/dL CK-MB (CK-2) 69.6 H (0.0-3.6) ng/mL CK-MB (CK-2) % 8.8 H (2.5-3.0) % Laboratory Results - last 24 hr 06/20/18 06/20/18 06/21/18 07:00 07:00 06:00 WBC 13.0 H RBC 4.71 Hgb 13.9 L Hct 40.6 L MCV 86.2 MCH 29.5 MCHC 34.2 RDW 14.6 H Plt Count 210 MPV 9.8 Gran % 75.4 H Lymph % (Auto) 9.9 L [place] % (Auto) 13.3 H Eos % (Auto) 1.2 L Baso % (Auto) 0.2 Gran # 9.76 H Lymph # (Auto) 1.3 [place] # (Auto) 1.7 H Eos # (Auto) 0.2 Baso # (Auto) 0.03 Sodium Potassium Chloride Carbon Dioxide Anion Gap BUN Creatinine Est GFR ( Amer) Est GFR (Non-Af Amer) Random Glucose Hemoglobin A1c 5.6 Calcium CK-MB (CK-2) 69.6 H CK-MB (CK-2) % 8.8 H 06/21/18 06:00 WBC RBC Hgb Hct MCV MCH MCHC RDW Plt Count MPV Gran % Lymph % (Auto) [place] % (Auto) Eos % (Auto) Baso % (Auto) Gran # Lymph # (Auto) [place] # (Auto) Eos # (Auto) Baso # (Auto) Sodium 134 Potassium 4.1 Chloride 100 Carbon Dioxide 26 Anion Gap 12 BUN 13 Creatinine 0.8 Est GFR ( Amer) > 60 Est GFR (Non-Af Amer) > 60 Random Glucose 124 H Hemoglobin A1c Calcium 8.7 CK-MB (CK-2) CK-MB (CK-2) % EKG/Cardiology Studies: Cardiology / EKG Studies 06/20/18 12:15 EKG [ELECTROCARDIOGRAM] Stat Comment: Reason For Exam: Elevated trop 06/20/18 13:44 ELECTROCARDIOGRAM Urgent Comment: 12 lead EKG upon arrival in unit Reason For Exam: post ptca 06/21/18 13:45 ELECTROCARDIOGRAM DAILY Comment: Reason For Exam: chest pain ELECTROCARDIOGRAM DAILY Comment: Reason For Exam: chest pain Review of Systems - Review of Systems All systems: reviewed and no additional remarkable complaints except Review of Systems: as per HPI Critical Care Progress Note - Nutrition Nutrition: Nutrition Category Date Time Status Heart Healthy Diet [DIET] Diets 06/20/18 Breakfast Active Assessment/Plan - Assessment and Plan (Free Text) Assessment: 67M s/p L total knee arhtroscopy 06/19 admitted to ICU for STEMI hours following procedure Plan: Neurology: AAO3 now and at baseline No FND Reorient as needed Pulm: RR stable satting well on room air Maintain O2 Sat >95% Cardio: Anterior stemi w/ troponin elevation post TKA 06/19: code heart not called due to the risk of hemorrhaging to the left knee since patient had the left knee replacement as per ortho Dr Gilman 06/20: Patient underwent cardiac cath - Bare metal stent deployed to LAD C/w ASA + Plavix C/w Lopressor 25IBD, ASA, Statin, Losartan Cardiac risk reduction Heart health diet. ID: Afebrile over night Continue monitoring for s/s infection Renal: stable renal function, continue to monitor Endo: maintain euglycemia. Hypovitaminosis- continue with vitamin D GI: Colace and Senokot to prevent constipation. GI/DVT PPx: Famotidine /Patient does not require DVT PPX other than SCD as per Cardiology Pt. seen, examined, and discussed w/ attending physician Dr. Christel Stone DO PGY1 Internal Medicine [employer] Inspector - Pager [phone] - Date & Time Date: 06/21/18 Time: 12:26 <Gen Kearney - Last Filed: 06/21/18 12:50> CCU Objective - Vital Signs / Intake & Output Vital Signs (Last 4 hours): Vital Signs Pulse 06/21/18 10:22 77 06/21/18 10:20 77 Intake and Output (Last 8hrs): Intake & Output 06/20/18 06/21/18 06/21/18 22:59 06:59 14:59 Intake Total 1300 Output Total 2500 875 Balance -1200 -875 Intake: IV 600 Left Hand 600 Oral 700 Output: Urine 2500 875 Urine, Voided 2500 875 Stool 0 Other: # Bowel Movements 0 - Medications Active Medications: Active Medications Generic Name Dose Route Start Last Admin Trade Name Freq PRN Reason Stop Dose Admin Acetaminophen 650 mg 06/19/18 12:15 06/21/18 07:28 Tylenol 325mg Tab PO 650 mg Q6H MARIANA Administration Aspirin 81 mg 06/21/18 10:00 06/21/18 10:21 Ecotrin PO 81 mg DAILY MARIANA Administration Atorvastatin Calcium 40 mg 06/20/18 17:00 06/20/18 19:28 Lipitor PO 40 mg DIN MARIANA Administration Cholecalciferol 2,000 intlu 06/20/18 10:00 06/21/18 10:23 Vitamin D PO 2,000 intlu DAILY MARIANA Administration Clopidogrel Bisulfate 75 mg 06/21/18 10:00 06/21/18 10:23 Plavix PO 75 mg DAILY MARIANA Administration Diphenhydramine HCl 25 mg 06/19/18 22:54 06/19/18 23:29 Benadryl PO 25 mg HS PRN Administration Insomnia Famotidine 40 mg 06/20/18 22:00 06/20/18 21:07 Pepcid PO 40 mg HS MARIANA Administration Hydromorphone HCl 1 mg 06/19/18 20:29 06/21/18 01:08 Dilaudid IVP 1 mg Q6 PRN Administration Pain, severe (8-10) Lactobacillus Acidophilus 1 cap 06/20/18 10:45 06/21/18 10:19 Bacid Acidophilus PO 1 cap DAILY MARIANA Administration Losartan Potassium 50 mg 06/20/18 10:00 06/21/18 10:20 Cozaar PO 50 mg DAILY MARIANA Administration Metoprolol Tartrate 25 mg 06/19/18 22:00 06/21/18 10:22 Lopressor PO 25 mg BID MARIANA Administration Non-Formulary Medication 50 mg 06/19/18 18:00 06/19/18 19:34 Sildenafil Citrate [Viagra] PO Not Given QPM [facility] Ondansetron HCl 4 mg 06/19/18 11:00 Zofran Inj IVP ONCE PRN Nausea/Vomiting Oxycodone HCl 5 mg 06/19/18 12:01 06/20/18 20:15 Oxycodone Immediate Release Tab PO 5 mg Q4H PRN Administration Pain, moderate (4-7) Pregabalin 50 mg 06/19/18 18:00 06/20/18 19:28 Lyrica PO 50 mg BID MARIANA Administration Sennosides 17.2 mg 06/19/18 22:00 06/20/18 21:06 Senokot Tab PO 17.2 mg HS MARIANA Administration - Patient Studies Lab Studies: Lab Studies 06/21/18 06/21/18 Range/Units 06:00 06:00 WBC 13.0 H (4.5-11.0) 10^3/ul RBC 4.71 (3.5-6.1) 10^6/uL Hgb 13.9 L (14.0-18.0) g/dL Hct 40.6 L (42.0-52.0) % MCV 86.2 (80.0-105.0) fl MCH 29.5 (25.0-35.0) pg MCHC 34.2 (31.0-37.0) g/dl RDW 14.6 H (11.5-14.5) % Plt Count 210 (120.0-450.0) 10^3/uL MPV 9.8 (7.0-11.0) fl Gran % 75.4 H (50.0-68.0) % Lymph % (Auto) 9.9 L (22.0-35.0) % [place] % (Auto) 13.3 H (1.0-6.0) % Eos % (Auto) 1.2 L (1.5-5.0) % Baso % (Auto) 0.2 (0.0-3.0) % Gran # 9.76 H (1.4-6.5) Lymph # (Auto) 1.3 (1.2-3.4) [place] # (Auto) 1.7 H (0.1-0.6) Eos # (Auto) 0.2 (0.0-0.7) Baso # (Auto) 0.03 (0.0-2.0) K/mm3 Sodium 134 (132-148) mmol/L Potassium 4.1 (3.6-5.0) mmol/L Chloride 100 (98-107) mmol/L Carbon Dioxide 26 (21-33) mmol/L Anion Gap 12 (10-20) BUN 13 (7-21) mg/dL Creatinine 0.8 (0.8-1.5) mg/dl Est GFR ( Amer) > 60 Est GFR (Non-Af Amer) > 60 Random Glucose 124 H (70-110) mg/dL Calcium 8.7 (8.4-10.5) mg/dL Laboratory Results - last 24 hr 06/21/18 06/21/18 06:00 06:00 WBC 13.0 H RBC 4.71 Hgb 13.9 L Hct 40.6 L MCV 86.2 MCH 29.5 MCHC 34.2 RDW 14.6 H Plt Count 210 MPV 9.8 Gran % 75.4 H Lymph % (Auto) 9.9 L [place] % (Auto) 13.3 H Eos % (Auto) 1.2 L Baso % (Auto) 0.2 Gran # 9.76 H Lymph # (Auto) 1.3 [place] # (Auto) 1.7 H Eos # (Auto) 0.2 Baso # (Auto) 0.03 Sodium 134 Potassium 4.1 Chloride 100 Carbon Dioxide 26 Anion Gap 12 BUN 13 Creatinine 0.8 Est GFR ( Amer) > 60 Est GFR (Non-Af Amer) > 60 Random Glucose 124 H Calcium 8.7 EKG/Cardiology Studies: Cardiology / EKG Studies 06/20/18 12:15 EKG [ELECTROCARDIOGRAM] Stat Comment: Reason For Exam: Elevated trop 06/20/18 13:44 ELECTROCARDIOGRAM Urgent Comment: 12 lead EKG upon arrival in unit Reason For Exam: post ptca 06/21/18 13:45 ELECTROCARDIOGRAM DAILY Comment: Reason For Exam: chest pain Critical Care Progress Note - Nutrition Nutrition: Nutrition Category Date Time Status Heart Healthy Diet [DIET] Diets 06/20/18 Breakfast Active Assessment/Plan - Assessment and Plan (Free Text) Assessment: Patient seen and examined on rounds with resident, agree with note with following additions/exceptions: Patient is 67yo male with PMhx of CAD, s/p L knee surgery, who had STEMI s/p PCI with BMS to LAD. Currently afebrile, BP stable, comfortable in NAD, doing well. No major complaints. On ASA, Plvix, HH stable Labs, imaging, chart reviewed. CAD s/p PCI with stents L knee surgery Recommend: - supp o2 as neede, duonebs PRN, IS - NO ID issues - Pain control - PT - ASA, Plavix, Statin - IVF hydrtion - monitor HH - FS control - GI ppx - DVT ppx, HSQ - transfer to telemetry
--- NOTE | 2018-06-21 08:36 | CP.PCM.PN ---
Subjective - Date & Time of Evaluation Date of Evaluation: 06/21/18 Time of Evaluation: 08:37 - Subjective Subjective: Pt awake, alert. S/p cardiac cath. Denies any chest pain. T now 99.4 LLE: dressing intact immobilizer in place NVI distally WBC 13.0 Hg 13.9 POD#2 Pt currently on Plavix and ASA Plan for dressing change tomorrow cont current care as per Medicine and Cardiology Objective - Vital Signs/Intake and Output Vital Signs (last 24 hours): Temp Pulse Resp BP Pulse Ox 99.4 F 74 15 139/82 94 L 06/21/18 07:28 06/20/18 21:00 06/20/18 20:00 06/20/18 21:00 06/20/18 21:00 Intake and Output: 06/21/18 06/21/18 06:59 18:59 Intake Total 100 Output Total 875 Balance -775 - Medications Medications: Current Medications Acetaminophen (Tylenol 325mg Tab) 650 mg PO Q6H [facility] Last Admin: 06/21/18 07:28 Dose: 650 mg Aspirin (Ecotrin) 81 mg PO DAILY [facility] Atorvastatin Calcium (Lipitor) 40 mg PO DIN [facility] Last Admin: 06/20/18 19:28 Dose: 40 mg Cholecalciferol (Vitamin D) 2,000 intlu PO DAILY [facility] Last Admin: 06/20/18 10:00 Dose: 2,000 intlu Clopidogrel Bisulfate (Plavix) 75 mg PO DAILY [facility] Diphenhydramine HCl (Benadryl) 25 mg PO HS PRN PRN Reason: Insomnia Last Admin: 06/19/18 23:29 Dose: 25 mg Famotidine (Pepcid) 40 mg PO HS [facility] Last Admin: 06/20/18 21:07 Dose: 40 mg Hydromorphone HCl (Dilaudid) 1 mg IVP Q6 PRN PRN Reason: Pain, severe (8-10) Last Admin: 06/21/18 01:08 Dose: 1 mg Lactobacillus Acidophilus (Bacid Acidophilus) 1 cap PO DAILY [facility] Losartan Potassium (Cozaar) 50 mg PO DAILY [facility] Last Admin: 06/20/18 10:42 Dose: 50 mg Metoprolol Tartrate (Lopressor) 25 mg PO BID [facility] Last Admin: 06/20/18 20:42 Dose: 25 mg Non-Formulary Medication (Sildenafil Citrate [Viagra]) 50 mg PO QPM [facility] Last Admin: 06/19/18 19:34 Dose: Not Given Ondansetron HCl (Zofran Inj) 4 mg IVP ONCE PRN PRN Reason: Nausea/Vomiting Oxycodone HCl (Oxycodone Immediate Release Tab) 5 mg PO Q4H PRN PRN Reason: Pain, moderate (4-7) Last Admin: 06/20/18 20:15 Dose: 5 mg Pregabalin (Lyrica) 50 mg PO BID [facility] Last Admin: 06/20/18 19:28 Dose: 50 mg Sennosides (Senokot Tab) 17.2 mg PO [facility] Last Admin: 06/20/18 21:06 Dose: 17.2 mg - Labs Labs: 06/21/18 06:00 06/21/18 06:00
[2018-06-21] MEDS: Lactobacillus Acidophilus 500 MU Cap PO SCH (10:19)
[2018-06-21] MEDS: Cholecalciferol 1,000 INTLU TAB PO SCH (10:23)
--- NOTE | 2018-06-21 15:45 | PN ---
DATE: 06/21/2018 CARDIOLOGY FOLLOWUP SUBJECTIVE: The patient is chest pain-free. His knee feels fine. PHYSICAL EXAMINATION: VITAL SIGNS: Stable. NECK: Negative JVD. LUNGS: Without rales. HEART: Reveals S1, S2. EXTREMITIES: Without edema. LABORATORY DATA: Reveals a hemoglobin that is stable. IMPRESSION: 1. Stable post percutaneous transluminal coronary angioplasty and stent of an left anterior descending. 2. Status post acute anterior wall myocardial infarction, post knee surgery. 3. Single-vessel coronary artery disease of the left anterior descending. 4. Status post knee replacement. 5. Hypertension. Given these findings, the patient is hemodynamically doing well. His cardiac status is doing well. The patient can be transferred to telemetry today. Kenneth Garcia MD
--- NOTE | 2018-06-21 16:00 | CARD ---
APPROVED REPORT Date of service: 06/21/2018 EKG Measurement Heart [id number] <Conclusion> Normal sinus rhythm Possible Inferior infarct, age undetermined Abnormal ECG
[2018-06-21] MEDS: oxyCODONE 5 mg Immediate Release Tab PO PRN (17:19)
--- NOTE | 2018-06-22 00:51 | PN ---
DATE: 06/21/2018 SUBJECTIVE: The patient was seen this morning in Coronary Care Unit, CCU, bed 7 with his at the bedside. He is in bed, comfortable, awake, alert, clear, sharp, in no distress and in very good spirits. Happy to gone through his knee replacement surgery and cardiac stenting procedure without complication or difficulty. He is pleased to hear that his LV function is good and he is expecting to have a good recovery, looking forward to physical therapy. PHYSICAL EXAMINATION LUNGS: Clear. HEART: Regular, nontachycardic. EXTREMITIES: Left knee is bandaged, has no edema of significance as the legs are elevated. PLAN: Continue cardiac followup, orthopedic rehab and the patient may be ready to leave ICU and the hospital for rehab center as early as tomorrow or Monday when cleared by Cardiology. Yon Prater MD
[2018-06-22 03:41] VITALS: O2SAT 95
[2018-06-22 07:14] LABS: BASO # 0.04 K/mm3 (0.0-2.0); BASO % 0.3 % (0.0-3.0); EOS # 0.3 (0.0-0.7); EOS % 2.6 % (1.5-5.0); GRAN # 8.62 (1.4-6.5); GRAN % 72.3 % (50.0-68.0); HEMOGLOBIN 12.6 g/dL (14.0-18.0); LYMPH # 1.6 (1.2-3.4); LYMPH % 13.5 % (22.0-35.0); MEAN CELL VOLUME 86.3 fl (80.0-105.0); MEAN CORPUSCULAR HEMOGLOBIN 28.8 pg (25.0-35.0); MEAN CORPUSCULAR HGB CONC 33.4 g/dl (31.0-37.0); MEAN PLATELET VOLUME 10.2 fl (7.0-11.0); MONO # 1.4 (0.1-0.6); MONO % 11.3 % (1.0-6.0); RBC 4.37 10^6/uL (3.5-6.1); RED CELL DISTRIBUTION WIDTH 14.5 % (11.5-14.5); WHITE BLOOD COUNT 11.9 10^3/ul (4.5-11.0)
[2018-06-22 07:30] LABS: BLOOD UREA NITROGEN 18 mg/dL (7-21); CALCIUM 8.6 mg/dL (8.4-10.5); GFR NON-AFRICAN AMERICAN > 60
[2018-06-22] MEDS: Cholecalciferol 1,000 INTLU TAB PO SCH (10:53)
[2018-06-22] MEDS: Lactobacillus Acidophilus 500 MU Cap PO SCH (10:53)
--- NOTE | 2018-06-22 11:50 | PN ---
DATE: 06/22/2018 CARDIOLOGY FOLLOWUP SUBJECTIVE: The patient is chest pain free. He is beginning physical therapy. OBJECTIVE: VITAL SIGNS: Blood pressure is 141/71, heart rate is in the 80s. NECK: Negative JVD. LUNGS: Without rales. HEART: Reveal S1, S2. EXTREMITIES: Without edema. LABORATORY DATA: BUN and creatinine are unremarkable. Glucose is 114, hemoglobin is 12.6. IMPRESSION: 1. Stable post percutaneous transluminal coronary intervention and stent of an left anterior descending artery. 2. Status post anterior wall myocardial infarction. 3. Status post knee surgery. 4. Hypertension. 5. Hypercholesterolemia. 6. Borderline diabetes mellitus. Given these findings, the patient's cardiac status is stable on his present medications. From a cardiac perspective, the patient can start rehab for his knee. We will discontinue Telemetry. Kenneth Garcia MD
[2018-06-22 11:54] VITALS: BP 150/80; RESP 19; TEMP 98
--- NOTE | 2018-06-22 13:12 | CP.PCM.PN ---
Subjective - Date & Time of Evaluation Date of Evaluation: 06/22/18 Time of Evaluation: 13:10 - Subjective Subjective: Pt awake, alert. Doing well. Adequate pain control. Afebrile, VSS L Knee: dressing changed incision intact mild to moderate swelling calf soft, NT NVI distally WBC 11.9 POD#3 Ortho stable for rehab today cont ASA and Plavix as per cardiology WBAT Objective - Vital Signs/Intake and Output Vital Signs (last 24 hours): Temp Pulse Resp BP Pulse Ox 98.0 F 91 H 19 150/80 95 06/22/18 11:53 06/22/18 11:53 06/22/18 11:53 06/22/18 11:53 06/22/18 05:48 Intake and Output: 06/22/18 06/22/18 06:59 18:59 Intake Total 240 Output Total 500 Balance -260 - Medications Medications: Current Medications Acetaminophen (Tylenol 325mg Tab) 650 mg PO Q6H PRN PRN Reason: Fever >100.4 F Aspirin (Ecotrin) 81 mg PO DAILY [facility] Last Admin: 06/22/18 10:53 Dose: 81 mg Atorvastatin Calcium (Lipitor) 40 mg PO DIN [facility] Last Admin: 06/21/18 17:19 Dose: 40 mg Cholecalciferol (Vitamin D) 2,000 intlu PO DAILY [facility] Last Admin: 06/22/18 10:53 Dose: 2,000 intlu Clopidogrel Bisulfate (Plavix) 75 mg PO DAILY [facility] Last Admin: 06/22/18 10:52 Dose: 75 mg Diphenhydramine HCl (Benadryl) 25 mg PO HS PRN PRN Reason: Insomnia Last Admin: 06/19/18 23:29 Dose: 25 mg Hydromorphone HCl (Dilaudid) 1 mg IVP Q6 PRN PRN Reason: Pain, severe (8-10) Last Admin: 06/21/18 14:06 Dose: 1 mg Lactobacillus Acidophilus (Bacid Acidophilus) 1 cap PO DAILY [facility] Last Admin: 06/22/18 10:53 Dose: 1 cap Losartan Potassium (Cozaar) 50 mg PO DAILY [facility] Last Admin: 06/22/18 10:53 Dose: 50 mg Metoprolol Tartrate (Lopressor) 25 mg PO BID [facility] Last Admin: 06/22/18 10:53 Dose: 25 mg Non-Formulary Medication (Sildenafil Citrate [Viagra]) 50 mg PO QPM [facility] Last Admin: 06/19/18 19:34 Dose: Not Given Ondansetron HCl (Zofran Inj) 4 mg IVP ONCE PRN PRN Reason: Nausea/Vomiting Oxycodone HCl (Oxycodone Immediate Release Tab) 5 mg PO Q4H PRN PRN Reason: Pain, moderate (4-7) Last Admin: 06/21/18 17:19 Dose: 5 mg Pregabalin (Lyrica) 50 mg PO BID [facility] Last Admin: 06/22/18 10:53 Dose: 50 mg Sennosides (Senokot Tab) 17.2 mg PO [facility] Last Admin: 06/21/18 21:55 Dose: 17.2 mg - Labs Labs: 06/22/18 06:00 06/22/18 06:30
[2018-06-22 14:23] VITALS: PULSE 77
[2018-06-22] MEDS: HYDROmorphone 1 mg/ml ISec IVP PRN (15:16)
== END 2018-06-22 16:30 | DRG 469 ==
LOC: SDS 06:19 → EDSTATUS 07:30 → 5RNO 15:07 → CCU 22:33 → 2RSO 06-21 16:26
PROVIDERS: ADMIT Orthopaedic Surgery; ATTEND Orthopaedic Surgery
PROC: 0MNP0ZZ Release Left Knee Bursa and Ligament, Open Approach (ICD-10-PCS; 2018-06-19)
PROC: 0SRD0J9 Replacement of Left Knee Joint with Synthetic Substitute, Cemented, Open Approach (ICD-10-PCS; principal; 2018-06-19 07:30)
PROC: 02703DZ Dilation of Coronary Artery, One Artery with Intraluminal Device, Percutaneous Approach (ICD-10-PCS; 2018-06-20)
PROC: 4A023N7 Measurement of Cardiac Sampling and Pressure, Left Heart, Percutaneous Approach (ICD-10-PCS; 2018-06-20)
PROC: B2111ZZ Fluoroscopy of Multiple Coronary Arteries using Low Osmolar Contrast (ICD-10-PCS; 2018-06-20)
PROC: B2151ZZ Fluoroscopy of Left Heart using Low Osmolar Contrast (ICD-10-PCS; 2018-06-20)
DX: M17.12 Unilateral primary osteoarthritis, left knee (principal); I21.09 ST elevation (STEMI) myocardial infarction involving other coronary artery of anterior wall; I97.191 Other postprocedural cardiac functional disturbances following other surgery; N35.9 Urethral stricture, unspecified; I10 Essential (primary) hypertension; I25.119 Atherosclerotic heart disease of native coronary artery with unspecified angina pectoris; E78.00 Pure hypercholesterolemia, unspecified; E55.9 Vitamin D deficiency, unspecified; R73.03 Prediabetes; Z85.46 Personal history of malignant neoplasm of prostate; Z96.651 Presence of right artificial knee joint; Z86.73 Personal history of transient ischemic attack (TIA), and cerebral infarction without residual deficits; Y83.8 Other surgical procedures as the cause of abnormal reaction of the patient, or of later complication, without mention of misadventure at the time of the procedure

== ENCOUNTER 2018-07-30 17:33 | Observation (INO) | payer MEDICARE ==
[2018-07-30 17:33] VITALS: BMI 41.8
--- NOTE | 2018-07-30 18:24 | ED PDOC ---
Arrival/HPI - General Historian: Patient - History of Present Illness Narrative History of Present Illness (Text): 07/30/18 18:20 68yr old male with hx of VA presents today with left sided chest pain that started around 430 today. pt states he was resting when pain started. pt states the pain is non radiating. pt states that the pain is a dull achy pain that is intermittent. pt denies associated sob. pt denies fever/chills. no cough. no abdominal pain. no n/v/d/c. no fever/chills. no urinary symptoms. pt denies calf pain or swelling. no other complaints. <Raquel Morales - Last Filed: 07/31/18 00:41> <Gene Guillen - Last Filed: 07/31/18 20:51> - General Chief Complaint: Chest Pain Time Seen by Provider: 07/30/18 17:53 Past Medical History - Provider Review Nursing Documentation Reviewed: Yes - Travel History Have you recently traveled outside [place] w/in the past 3 mons?: No - Tetanus Immunization Tetanus Immunization: Unknown - Cardiac Hx Cardiac Disorders: Yes Hx Hypertension: Yes - Pulmonary Hx Respiratory Disorders: No - Neurological Hx Neurological Disorder: No - HEENT Hx HEENT Disorder: No - Renal Hx Renal Disorder: No - Endocrine/Metabolic Hx Endocrine Disorders: No - Hematological/Oncological Hx Blood Disorders: No - Integumentary Hx Dermatological Disorder: No - Musculoskeletal/Rheumatological Hx Musculoskeletal Disorders: Yes (OSTEOARTHRITIS) Hx Falls: No Hx Osteoarthritis: Yes (RIGHT KNEE) Other/Comment: TORN RIGHT ACL,NOSE SX,BILATERAL SHOULDER SX - Gastrointestinal Hx Gastrointestinal Disorders: No - Genitourinary/Gynecological Hx Genitourinary Disorders: Yes (URETHRAL STRICTURE) Hx Prostate Problems: Yes (PROSTATE CA WITH METS) - Psychiatric Hx Psychophysiologic Disorder: No Hx Emotional Abuse: No Hx Physical Abuse: No Hx Substance Use: No - Surgical History Hx Appendectomy: Yes - Anesthesia Hx Anesthesia: Yes Hx Anesthesia Reactions: No Hx Malignant Hyperthermia: No - Suicidal Assessment Feels Threatened In Home Enviroment: No <Raquel Morales - Last Filed: 07/31/18 00:41> Family/Social History - Physician Review Nursing Documentation Reviewed: Yes Family/Social History: Unknown Family HX Smoking Status: Never Smoked Hx Alcohol Use: Yes (OCCASIONALLY) Hx Substance Use: No <Raquel Morales T - Last Filed: 07/31/18 00:41> Allergies/Home Meds <CarmenRaquel T - Last Filed: 07/31/18 00:41> <MindyGene - Last Filed: 07/31/18 20:51> Allergies/Adverse Reactions: Allergies No Known Allergies Allergy (Verified 07/30/18 20:18) Home Medications: Home Meds Medication Instructions Recorded Confirmed RX: Aspirin [Aspirin EC] 325 mg PO DAILY 07/30/18 07/30/18 RX: Atorvastatin [Lipitor] 40 mg PO DAILY 07/30/18 07/30/18 RX: Clopidogrel [Plavix] 75 mg PO DAILY 07/30/18 07/30/18 RX: Metoprolol Tartrate [Lopressor] 25 mg PO BID 07/30/18 07/30/18 Review of Systems - Review of Systems Constitutional: absent: Fatigue, Fevers Respiratory: absent: SOB, Cough Cardiovascular: Chest Pain. absent: Palpitations Gastrointestinal: absent: Abdominal Pain, Constipation, Diarrhea, Nausea, Vomiting Genitourinary Male: absent: Dysuria Musculoskeletal: absent: Arthralgias, Back Pain, Neck Pain Skin: absent: Rash, Pruritis Neurological: absent: Headache, Dizziness Psychiatric: absent: Anxiety, Depression, Suicidal Ideation <Brady Moraleshiginio Dubois - Last Filed: 07/31/18 00:41> Physical Exam Vital Signs Reviewed: Yes Vital Signs Temp Pulse Resp BP Pulse Ox 07/30/18 18:14 98.2 F 78 18 160/101 H 98 Temperature: Afebrile Blood Pressure: Hypertensive Pulse: Regular Respiratory Rate: Normal Appearance: Positive for: Well-Appearing, Non-Toxic, Comfortable Pain Distress: None Mental Status: Positive for: Alert and Oriented X 3 - Systems Exam Head: Present: Atraumatic Mouth: Present: Moist Mucous Membranes Neck: Present: Normal Range of Motion Respiratory/Chest: Present: Clear to Auscultation, Good Air Exchange. No: Respiratory Distress, Accessory Muscle Use Cardiovascular: Present: Regular Rate and Rhythm, Normal S1, S2. No: Murmurs, Tachycardic Abdomen: No: Tenderness, Distention, Rebound, Guarding Back: Present: Normal Inspection Upper Extremity: Present: Normal ROM Lower Extremity: Present: Normal ROM, Neurovascularly Intact, Capillary Refill < 2 s. No: CALF TENDERNESS, Tenderness, Swelling, Erythema Neurological: Present: GCS=15, Speech Normal Skin: Present: Warm, Dry, Normal Color. No: Rashes Psychiatric: Present: Alert, Oriented x 3 <Raquel Morales - Last Filed: 07/31/18 00:41> Vital Signs Temp Pulse Resp BP Pulse Ox 07/31/18 01:16 90 170/90 H 07/31/18 00:00 70 20 179/90 H 97 07/30/18 18:14 98.2 F 78 18 160/101 H 98 <Gene Guillen - Last Filed: 07/31/18 20:51> Medical Decision Making ED Course and Treatment: 07/30/18 18:26 68yr old male with hx of VA presents today with left sided CP. pt states he took 325mg of ASA this morning. cbc wnl cmp wnl trop wnl ekg; NSR at 85b/m. no st elevations, qtc; 483, normal axis. cxr: wnl pt reassessment; pt without any chest pain at present time. case discussed with dr. chan; accepts observational status admission for CP. impression; Chest pain admit observational status to tele. Reassessment Condition: Re-examined, Improved - RAD Interpretation Radiology Orders: 07/30/18 17:56 CHEST PORTABLE [RAD] Stat <Raquel Morales - Last Filed: 07/31/18 00:41> - Lab Interpretations Lab Results: 07/30/18 18:27 07/30/18 19:02 Lab Results 07/30/18 19:02: PT 13.9 H, INR 1.21, APTT 20.6 L 07/30/18 19:02: Sodium 138, Potassium 3.7, Chloride 104, Carbon Dioxide 26, Anion Gap 13, BUN 12, Creatinine 0.8, Est GFR ( Amer) > 60, Est GFR (Non- Af Amer) > 60, Random Glucose 94, Calcium 9.0, Magnesium 2.1, Total Bilirubin 0.4, AST 30, ALT 46, Alkaline Phosphatase 83, Lactate Dehydrogenase 451, Total Creatine Kinase 73, Troponin I < 0.01 D, Total Protein 7.1, Albumin 3.9, Globulin 3.1, Albumin/Globulin Ratio 1.3 07/30/18 18:27: WBC 6.7 D, RBC 4.79, Hgb 14.0, Hct 41.5 L, MCV 86.6, MCH 29.2, MCHC 33.7, RDW 14.1, Plt Count 272, MPV 10.8, Gran % 62.1, Lymph % (Auto) 20.6 L , [place] % (Auto) 11.5 H, Eos % (Auto) 5.4 H, Baso % (Auto) 0.4, Gran # 4.16, Lymph # (Auto) 1.4, [place] # (Auto) 0.8 H, Eos # (Auto) 0.4, Baso # (Auto) 0.03 - RAD Interpretation Radiology Orders: 07/30/18 17:56 CHEST PORTABLE [RAD] Stat - Medication Orders Current Medication Orders: Discontinued Medications Amlodipine Besylate (Norvasc) 5 mg PO ONCE ONE Stop: 07/31/18 17:16 Last Admin: 07/31/18 17:27 Dose: 5 mg MAR Pulse and Blood Pressure Document 07/31/18 17:27 KMS (Rec: 07/31/18 17:28 [id number] Pulse Pulse Rate (56-106) 89 Blood Pressure Blood Pressure (110/65-135/85) 180/88 Aspirin (Ecotrin) 325 mg PO DAILY [facility] Last Admin: 07/31/18 10:53 Dose: 325 mg Aspirin (Ecotrin) 81 mg PO DAILY [facility] Atorvastatin Calcium (Lipitor) 40 mg PO DIN [facility] Last Admin: 07/31/18 17:06 Dose: 40 mg Clopidogrel Bisulfate (Plavix) 75 mg PO DAILY [facility] Last Admin: 07/31/18 10:53 Dose: 75 mg Enoxaparin Sodium (Lovenox) 40 mg SC DAILY [facility]; Protocol Last Admin: 07/31/18 15:09 Dose: 40 mg Subcutaneous Administrations Document 07/31/18 15:09 KMS (Rec: 07/31/18 15:09 KMS [id number]) Injection Site MAR Injection Site Left Abdomen Charges for Administration # of Subcutaneous Administrations 1 Metoprolol Tartrate (Lopressor) 25 mg PO STAT STA Stop: 07/31/18 01:09 Last Admin: 07/31/18 01:16 Dose: 25 mg MAR Pulse and Blood Pressure Document 07/31/18 01:16 JOL (Rec: 07/31/18 01:17 [facility] [id number]) Pulse Pulse Rate (56-106) 90 Blood Pressure Blood Pressure (110/65-135/85) 170/90 Metoprolol Tartrate (Lopressor) 25 mg PO BRKDIN [facility] Last Admin: 07/31/18 17:06 Dose: 25 mg MAR Pulse and Blood Pressure Document 07/31/18 17:06 KMS (Rec: 07/31/18 17:07 KMS [facility] [id number]) Pulse Pulse Rate (56-106) 89 Blood Pressure Blood Pressure (110/65-135/85) 186/94 <Gene Guillen - Last Filed: 07/31/18 20:51> - PA / CALL CENTER RECRUITER / Resident Statement / has reviewed & agrees with the documentation as recorded. <Gene Guillen - Last Filed: 07/31/18 20:51> Disposition/Present on Arrival - Present on Arrival Any Indicators Present on Arrival: No History of DVT/PE: No History of Uncontrolled Diabetes: No Urinary Catheter: No History of Decub. Ulcer: No History Surgical Site Infection Following: None - Disposition Have Diagnosis and Disposition been Completed?: Yes Disposition Time: 18:20 Patient Plan: Observation <Raquel Morales - Last Filed: 07/31/18 00:41> <Gene Guillen - Last Filed: 07/31/18 20:51> - Disposition Diagnosis: Chest pain Disposition: HOSPITALIZED Condition: FAIR
[2018-07-30 18:44] LABS: BASO # 0.03 K/mm3 (0.0-2.0); BASO % 0.4 % (0.0-3.0); EOS # 0.4 (0.0-0.7); EOS % 5.4 % (1.5-5.0); GRAN # 4.16 (1.4-6.5); GRAN % 62.1 % (50.0-68.0); LYMPH # 1.4 (1.2-3.4); LYMPH % 20.6 % (22.0-35.0); MEAN CELL VOLUME 86.6 fl (80.0-105.0); MEAN CORPUSCULAR HEMOGLOBIN 29.2 pg (25.0-35.0); MEAN CORPUSCULAR HGB CONC 33.7 g/dl (31.0-37.0); MEAN PLATELET VOLUME 10.8 fl (7.0-11.0); MONO # 0.8 (0.1-0.6); MONO % 11.5 % (1.0-6.0); RBC 4.79 10^6/uL (3.5-6.1); RED CELL DISTRIBUTION WIDTH 14.1 % (11.5-14.5); WHITE BLOOD COUNT 6.7 10^3/ul (4.5-11.0)
--- NOTE | 2018-07-30 18:56 | RAD ---
Date of service: 07/30/2018 HISTORY: CP COMPARISON: 12/26/2017 FINDINGS: LUNGS: No active pulmonary disease. PLEURA: No significant pleural effusion identified, no pneumothorax apparent. CARDIOVASCULAR: No aortic atherosclerotic calcification present OSSEOUS STRUCTURES: No significant abnormalities. VISUALIZED UPPER ABDOMEN: Normal. OTHER FINDINGS: None. IMPRESSION: No active disease.
[2018-07-30 20:18] LABS: ALB/GLOB RATIO 1.3 (1.1-1.8); ALBUMIN 3.9 g/dL (3.0-4.8); ALT/SGPT 46 U/L (7-56); AST/SGOT 30 U/L (17-59); BLOOD UREA NITROGEN 12 mg/dL (7-21); GFR NON-AFRICAN AMERICAN > 60
[2018-07-30 20:27] LABS: TROPONIN I < 0.01 ng/mL
[2018-07-30 20:33] LABS: INR 1.21; PARTIAL THROMBOPLASTIN TIME 20.6 Seconds (25.1-36.5); PROTHROMBIN TIME 13.9 SECONDS (9.4-12.5)
[2018-07-31 06:42] VITALS: O2SAT 98
--- NOTE | 2018-07-31 10:09 | CARD ---
APPROVED REPORT Date of service: 07/30/2018 EKG Measurement Heart [id number] <Conclusion> Normal sinus rhythm Prolonged QT, new
[2018-07-31] MEDS ORDERED: Aspirin 325 mg EC Tablets PO SCH (10:45)
[2018-07-31 10:54] LABS: HEMOGLOBIN 14.4 g/dL (14.0-18.0); MEAN CELL VOLUME 87.4 fl (80.0-105.0); MEAN CORPUSCULAR HEMOGLOBIN 29.3 pg (25.0-35.0); MEAN CORPUSCULAR HGB CONC 33.5 g/dl (31.0-37.0); MEAN PLATELET VOLUME 10.4 fl (7.0-11.0); RBC 4.92 10^6/uL (3.5-6.1); RED CELL DISTRIBUTION WIDTH 14.2 % (11.5-14.5); WHITE BLOOD COUNT 6.4 10^3/ul (4.5-11.0)
[2018-07-31 11:02] LABS: ALB/GLOB RATIO 1.2 (1.1-1.8); ALBUMIN 4.1 g/dL (3.0-4.8); ALT/SGPT 47 U/L (7-56); AST/SGOT 33 U/L (17-59); BLOOD UREA NITROGEN 12 mg/dL (7-21); CALCIUM 9.3 mg/dL (8.4-10.5); GFR NON-AFRICAN AMERICAN > 60; HDL CHOLESTEROL 36 mg/dL (29-60)
[2018-07-31 11:09] LABS: TROPONIN I < 0.01 ng/mL
[2018-07-31 11:10] LABS: LDL CHOLESTEROL 67 mg/dL (0-129)
[2018-07-31] MEDS ORDERED: Iohexol 350 MG/100 ML VIAL ONE (12:34)
--- NOTE | 2018-07-31 14:02 | CT ---
Date of service: 07/31/2018 PROCEDURE: CT Chest with contrast (Pulmonary Angiogram) HISTORY: elevated d-dimer COMPARISON: None available. TECHNIQUE: Axial computed tomography images were obtained of the chest in the pulmonary arterial phase of enhancement. Coronal and sagittal reformatted images were created and reviewed. Intravenous contrast dose: Omnipaque 350, 100 cc Radiation dose: Total exam DLP = 755.84 mGy-cm. This CT exam was performed using one or more of the following dose reduction techniques: Automated exposure control, adjustment of the mA and/or kV according to patient size, and/or use of iterative reconstruction technique. FINDINGS: PULMONARY ARTERIES: Hounsfield unit measurement of 174 is registered at the main pulmonary artery reflecting limited pulmonary artery enhancement. No definite central pulmonary artery embolus is appreciable including main right main left pulmonary arteries. AORTA: No acute findings. No thoracic aortic aneurysm. Mild thoracic aortic atherosclerotic calcification identified. LUNGS: No definite pulmonary mass appreciated. The central airways are clear and there is no infiltrate bilaterally. Occasional ground-glass opacity seen scattered at the bilateral lower lobes and right middle lobe somewhat. PLEURAL SPACES: Unremarkable. No effusion or pneumothorax. HEART: Mild cardiomegaly is noted. No pericardial effusion. Coronary artery stents suggested at the left anterior descending coronary artery. LYMPH NODES: No significant lymphadenopathy. BONES, CHEST WALL: Advanced multilevel thoracic spondylosis without destructive bony lesion appreciable. No definite fracture identified. OTHER FINDINGS: Unremarkable. IMPRESSION: 1. No definite central pulmonary artery embolus identified. Medial and distal branches are limited opacification and evaluation overall. Clinical concern remains for potential pulmonary embolus, consider follow-up nuclear ventilation perfusion lung scan. 2. Cardiomegaly. No pulmonary vascular congestion, pleural or pericardial effusion. Limited multiple ground-glass opacity bilaterally apparently at the right middle and bilateral lower lobes.
[2018-07-31] MEDS ORDERED: Enoxaparin 40 mg Syringe SC SCH (14:30)
[2018-07-31 14:36] VITALS: RESP 18; TEMP 98.9
--- NOTE | 2018-07-31 15:13 | PN ---
DATE: 07/31/2018 REASON FOR CONSULTATION: Chest pain. SUBJECTIVE: The patient is 68-year-old white male who has a history of coronary artery disease status post coronary artery stenting to the LAD with a bare-metal stent on 06/20/2018 after the patient underwent total knee replacement. The patient was placed on aspirin and Plavix and was compliant with his medications until he presented because of chest pain, which is nonradiating and is aching in nature. The patient denies any associated diaphoresis or shortness of breath and denies any calf or leg pain. The patient is unaware of history of DVT complicating either his knee surgeries. SOCIAL HISTORY: The patient is nonsmoker, nondrinker. MEDICATIONS: Aspirin 325 mg once a day, Lipitor 40 mg once a day, Lopressor 25 mg once a day, Plavix 75 mg once a day. REVIEW OF SYSTEMS: No nausea or vomiting. No dizziness or syncope. No palpitation. PHYSICAL EXAMINATION: GENERAL: The patient is an elderly male who does not appear to be in acute distress. VITAL SIGNS: Blood pressure 145/73, heart rate 58, temperature 97.8, respiration 20. HEENT: Normocephalic. CHEST: Clear. HEART: S1 and S2, regular. EXTREMITIES: No edema and no calf tenderness. LABORATORY DATA: Today's SMA-7 is entirely within normal limits. Two sets of troponins are negative. Total cholesterol is 105. The rest of lipid profile is within normal limits. D-dimer is elevated at 1172. EKG revealed normal sinus rhythm with prolonged QT interval, heart rate is 85. A CT angio revealed no definite central pulmonary embolus. Medial and distal branches are limited opacification and evaluation overall. Clinical concern remains for potential pulmonary embolus. Consider followup nuclear ventilation perfusion scan. ASSESSMENT: 1. Chest pain, myocardial infarction is ruled out. 2. History of left anterior descending stenting about 6 weeks ago. 3. Status post recent total knee replacement. 4. Rule out pulmonary embolism and/or deep vein thrombosis. CONDITIONS: Continue aspirin 325 mg once a day, Lipitor 40 g once a day, Lopressor 25 mg once a day, Plavix 75 mg once a day. Start subcutaneous Lovenox at 40 mg once a day. Obtain ventilation perfusion scan as well as venous Doppler of the lower extremities. Odilon Borrego MD
--- NOTE | 2018-07-31 15:46 | US ---
HISTORY: Leg pain and swelling. Evaluate for DVT PHYSICIAN(S): Kenneth Watson MD. TECHNIQUE: Duplex sonography and color-flow Doppler with graded compression were used to evaluate the deep venous systems of both lower extremities. FINDINGS: The visualized deep venous systems of both lower extremities are sonographically normal and compressible. Normal wave forms and augmentation are seen. There is no sonographic evidence for deep venous thrombosis in the visualized segments of both lower extremities. IMPRESSION: No sonographic evidence for deep venous thrombosis in the visualized segments of both lower extremities.
--- NOTE | 2018-07-31 16:40 | NM ---
Date of service: 07/31/2018 COMPARISON: July 31, 2018 single-view chest. July 31, 2018 CT pulmonary angiogram TECHNIQUE: 30.0 mCi technetium 99-m DTPA aerosol. 4.1 mCI technetium 99-m MAA administered intravenously. FINDINGS: VENTILATION COMPONENT: Mildly heterogeneous. Retention of radionuclide in the tracheobronchial tree and ingestion of radionuclide in the stomach, incidental findings PERFUSION COMPONENT: Heterogeneous distribution of radionuclide. No geographic, segmental, lobar abnormalities apparent on the present examination. IMPRESSION: Low probability ventilation perfusion scan for pulmonary embolism.
[2018-07-31 17:08] VITALS: PULSE 89
[2018-07-31 17:28] VITALS: BP 180/88
--- NOTE | 2018-08-01 03:01 | HP ---
CHIEF COMPLAINT: Chest pain. HISTORY OF PRESENT ILLNESS: This is a 68-year-old man who presented to the emergency room because of onset of chest pain yesterday, Monday, through the course of the afternoon. The patient states this pain is so different than his heart attack pain or angina pain he had in the past. It was a dull achy feeling, not a pressure or squeezing. There was no diaphoresis, palpitations or radiation to the neck, jaw, or left arm. Because the pain persisted several hours, he became concerned and came to the emergency room. EKG and troponins were negative. The patient was admitted for overnight observation. PAST MEDICAL HISTORY: The patient has essentially no past history until he presented for knee replacement earlier this year. He had a left total knee replacement in June 2018 and he had a right total knee replacement in January 2018. Past history is also significant for coronary artery disease. The patient had a ST elevation myocardial infarction postop and so in June 2018, he underwent cardiac catheterization with Dr. Kenneth Garcia. Bare metal stent was placed, LV function was good, diagnosed with single vessel coronary artery disease. He has a history of urethral stricture, followed by urologist. SOCIAL HISTORY: He does not smoke or drink alcohol. He is and lives at home with his . ALLERGIES: NO KNOWN ALLERGIES TO MEDICATIONS. HOME MEDICATIONS: Include metoprolol, Lipitor, Plavix, aspirin and Lopressor. REVIEW OF SYSTEMS: Otherwise, negative. PHYSICAL EXAMINATION: GENERAL: The patient was seen in CAT scan suite on the first floor. He is awake, alert, clear, in no acute distress. HEENT: Head and neck are unremarkable. Conjunctivae are pink. Mucous membranes are moist. NECK: Supple without masses. HEART: Regular, not tachycardic. ABDOMEN: Soft and nontender. EXTREMITIES: Show no edema. IMPRESSION: Atypical chest pain and the patient recently had a cardiac catheterization and stent placement. EKG and cardiac enzymes have already been done. He has been cleared by cardiology for discharge to home, pending negative PE workup. If the CT angiogram and venous Doppler of the lower extremities are negative, will be ready for discharge to home and follow up with an outpatient workup. During course of the day, the patient's results were reported. CT angiogram of the chest was negative for pulmonary embolus, V/Q scan was negative and venous Doppler of the lower extremities were negative. I called in a discharge order. FINAL DISCHARGE DIAGNOSES: 1. Atypical chest pain. 2. History of coronary artery disease, status post stent placement and cardiac catheterization in June 2018 only one month ago. 3. History of urethral stricture. 4. Osteoarthritis, status post bilateral knee placements earlier this year. PLAN: The patient will be discharged to home. Follow up with us in the office within 1 week. Yon Prater MD
== END 2018-07-31 17:43 | disposition home or self-care (01) ==
LOC: ED 17:33 → ERH 20:36 → 2RNO 07-31 01:28
PROVIDERS: ADMIT Internal Medicine; ATTEND Internal Medicine
DX: R07.89 Other chest pain (principal); I25.10 Atherosclerotic heart disease of native coronary artery without angina pectoris; I10 Essential (primary) hypertension; I25.2 Old myocardial infarction; Z95.5 Presence of coronary angioplasty implant and graft; Z79.02 Long term (current) use of antithrombotics/antiplatelets; Z79.82 Long term (current) use of aspirin; Z85.46 Personal history of malignant neoplasm of prostate; Z96.653 Presence of artificial knee joint, bilateral
CPT/HCPCS: 36415; 71045; 71275; 78582; 80053; 80061; 82550; 83615; 83735; 84100; 84484; 85025; 85027; 85378; 85610; 85730; 93005; 93970; 96372; 99285; G0378; J1650; Q9967

== ENCOUNTER 2018-08-04 11:01 | Emergency (ER) | payer MEDICARE ==
[2018-08-04 11:02] VITALS: BMI 38.2
--- NOTE | 2018-08-04 11:18 | ED PDOC ---
Arrival/HPI - General Time Seen by Provider: 08/04/18 11:16 Historian: Patient - History of Present Illness Narrative History of Present Illness (Text): 08/04/18 11:18 68 y/o male, pmh including htn/hld/anemia/GA, nkda, take aspirin and plavix, c/o lt. nostril bleeding started about 2 hours ago without fall or trauma. Pt. stated that he has frequent nose bleed, started to have bleeding this morning, call the ENT and told to come to the ER for cauterization and would see him monday. Pt. stated that the bleeding been on and off, no fever or chills, no recent URI,no fall or trauma, no night sweat, no other medical or psychological complaints. Past Medical History - Provider Review Nursing Documentation Reviewed: Yes - Tetanus Immunization Tetanus Immunization: Unknown - Cardiac Hx GA: Yes - Pulmonary Hx Respiratory Disorders: No - Neurological Hx Neurological Disorder: No - HEENT Hx HEENT Disorder: No - Renal Hx Kidney Stones: Yes - Endocrine/Metabolic Hx Endocrine Disorders: No - Hematological/Oncological Hx Blood Disorders: Yes Hx Cancer: Yes (prostate cancer) - Integumentary Hx Dermatological Disorder: No - Musculoskeletal/Rheumatological Hx Musculoskeletal Disorders: No - Gastrointestinal Hx Gastrointestinal Disorders: No - Genitourinary/Gynecological Hx Genitourinary Disorders: No - Psychiatric Hx Psychophysiologic Disorder: No Hx Substance Use: No - Surgical History Hx Cardiac Catheterization: Yes (stent x1) - Anesthesia Hx Anesthesia: Yes - Suicidal Assessment Feels Threatened In Home Enviroment: No Family/Social History - Physician Review Nursing Documentation Reviewed: Yes Family/Social History: Unknown Family HX Smoking Status: Never Smoked Hx Alcohol Use: No Hx Substance Use: No Allergies/Home Meds Allergies/Adverse Reactions: Allergies No Known Allergies Allergy (Verified 08/04/18 11:17) Home Medications: Home Meds Medication Instructions Recorded Confirmed Aspirin [Aspirin EC] 325 mg PO DAILY 07/30/18 08/04/18 Atorvastatin [Lipitor] 40 mg PO DAILY 07/30/18 08/04/18 Clopidogrel [Plavix] 75 mg PO DAILY 07/30/18 08/04/18 Metoprolol Tartrate [Lopressor] 25 mg PO BID 07/30/18 08/04/18 Review of Systems - Review of Systems Constitutional: absent: Fatigue, Fevers Eyes: absent: Vision Changes ENT: Epistaxis. absent: Hearing Changes Respiratory: absent: SOB, Cough Cardiovascular: absent: Chest Pain Gastrointestinal: absent: Abdominal Pain, Nausea, Vomiting Skin: absent: Rash, Pruritis Neurological: absent: Headache, Dizziness Psychiatric: absent: Anxiety, Depression, Suicidal Ideation Physical Exam Vital Signs Reviewed: Yes Temperature: Afebrile Blood Pressure: Hypertensive Pulse: Regular Respiratory Rate: Normal Appearance: Positive for: Well-Appearing, Non-Toxic, Comfortable Pain Distress: None Mental Status: Positive for: Alert and Oriented X 3 - Systems Exam Head: Present: Atraumatic, Normocephalic Pupils: Present: PERRL Extroacular Muscles: Present: EOMI Conjunctiva: Present: Normal Mouth: Present: Moist Mucous Membranes Nose (External): Present: Atraumatic. No: Abrasion, Contusion, Laceration, Lesions Nose (Internal): Present: Normal Inspection, No Active Bleeding, Rhinorrhea, Epistaxis (lt. anterior nasal region visible approx. 0.1cm diameter bleeding site noted with no active bleeding now. ). No: Septal Hematoma Neck: Present: Normal Range of Motion Respiratory/Chest: Present: Clear to Auscultation, Good Air Exchange. No: Respiratory Distress, Accessory Muscle Use Cardiovascular: Present: Regular Rate and Rhythm, Normal S1, S2. No: Murmurs Abdomen: No: Tenderness, Distention, Peritoneal Signs Back: Present: Normal Inspection Upper Extremity: Present: Normal Inspection. No: Cyanosis, Edema Lower Extremity: Present: Normal Inspection. No: Edema Neurological: Present: GCS=15, CN II-XII Intact, Speech Normal Skin: Present: Warm, Dry, Normal Color. No: Rashes Psychiatric: Present: Alert, Oriented x 3, Normal Insight, Normal Concentration Medical Decision Making ED Course and Treatment: 08/04/18 11:39 -Afrin spray -Observe and reassess 08/04/18 12:24 -Afrin didn't controlled the bleeding, nasal compression with limited relief. Lidocaine 4% nasal applied for 2 minutes, cauterize with silver nitrate stick directly, bleeding resolved, feeling much better, will discharge home. -Discharge home with education on apply neosporin as needed to avoid dryness and crack, follow up with your own pmd and ENT within 2 days, return to the ER for any new or worsening signs or symptoms. - PA / REGISTERED NURSE SUPERVISOR / Resident Statement / has reviewed & agrees with the documentation as recorded. Disposition/Present on Arrival - Present on Arrival Any Indicators Present on Arrival: No History of DVT/PE: No History of Uncontrolled Diabetes: No Urinary Catheter: No History of Decub. Ulcer: No History Surgical Site Infection Following: None - Disposition Have Diagnosis and Disposition been Completed?: Yes Diagnosis: Epistaxis Disposition: HOME/ ROUTINE Disposition Time: 12:26 Patient Plan: Discharge Condition: IMPROVED Additional Instructions: -Discharge home with education on apply neosporin as needed to avoid dryness and crack, follow up with your own pmd and ENT within 2 days, return to the ER for any new or worsening signs or symptoms. Referrals: Ritchie Ruiz DO [[facility]] - Follow up with primary Forms: WORK NOTE
[2018-08-04 11:22] VITALS: TEMP 97.9
[2018-08-04] MEDS ORDERED: Oxymetazoline 0.05% Nasal Spray (30 ml) NS STA (11:34)
[2018-08-04] MEDS ORDERED: Silver Nitrate Topical - Stick TOP ONE (11:49)
[2018-08-04] MEDS ORDERED: Lidocaine 4% 50 mL Topical Sol (OR USE) TOP STA (11:49)
[2018-08-04 12:29] VITALS: BP 137/72; PULSE 68; RESP 18; O2SAT 97
== END 2018-08-04 12:34 | disposition home or self-care (01) ==
LOC: ED 11:01
DX: R04.0 Epistaxis (principal)

== ENCOUNTER 2018-12-02 15:55 | Inpatient (IN) | payer MEDICARE | END 2018-12-05 20:26 | disposition home or self-care (01) | LOC: ED 15:55 → ERH 19:04 → 3RNO 21:20 ==

== ENCOUNTER 2018-12-28 21:25 | Emergency (ER) | payer MEDICARE ==
[2018-12-28 21:26] VITALS: BMI 36.3
[2018-12-28 21:41] VITALS: PULSE 58; RESP 20; TEMP 98; O2SAT 99
[2018-12-28] MEDS ORDERED: Lidocaine 2% Jelly (Uro-Jet) TOP STA (21:49)
--- NOTE | 2018-12-28 21:56 | ED PDOC ---
Arrival/HPI - General Chief Complaint: Male Genitourinary Time Seen by Provider: 12/28/18 21:34 - History of Present Illness Narrative History of Present Illness (Text): 12/28/18 21:54 68 m with hx urethral stricture presents to the ED for evaluation of dislodged urethral merino catheter. Patient states that he saw his urologist, dr. fulton, in the office today for urine retention, a merino catheter was placed. Patient went home, states saw blood in catheter and flushed his catheter. Patient's catheter dislodged. Patient states his bladder feels full but no pain at this time. Past Medical History - Infectious Disease Hx of Infectious Diseases: None - Tetanus Immunization Tetanus Immunization: Unknown - Cardiac Hx NM: Yes Other/Comment: cardiac stent - Pulmonary Hx Respiratory Disorders: No - Neurological Hx Neurological Disorder: No - HEENT Hx HEENT Disorder: No - Renal Hx Kidney Stones: Yes - Endocrine/Metabolic Hx Endocrine Disorders: No - Hematological/Oncological Hx Blood Disorders: Yes Hx Cancer: Yes (prostate cancer) - Integumentary Hx Dermatological Disorder: No - Musculoskeletal/Rheumatological Hx Musculoskeletal Disorders: Yes - Gastrointestinal Hx Gastrointestinal Disorders: No - Genitourinary/Gynecological Hx Genitourinary Disorders: Yes - Psychiatric Hx Psychophysiologic Disorder: No Hx Substance Use: No - Surgical History Hx Cardiac Catheterization: Yes (stent x1) - Anesthesia Hx Anesthesia: Yes - Suicidal Assessment Feels Threatened In Home Enviroment: No Family/Social History Family/Social History: No Known Family HX Smoking Status: Never Smoked Hx Alcohol Use: No Hx Substance Use: No Allergies/Home Meds Allergies/Adverse Reactions: Allergies No Known Allergies Allergy (Verified 12/28/18 21:41) Home Medications: Home Meds Medication Instructions Recorded Confirmed Aspirin [Aspirin EC] 81 mg PO DAILY 07/30/18 12/28/18 Atorvastatin [Lipitor] 40 mg PO DAILY 07/30/18 12/28/18 Clopidogrel [Plavix] 75 mg PO DAILY 07/30/18 12/28/18 Metoprolol Tartrate [Lopressor] 25 mg PO BID 07/30/18 12/28/18 Review of Systems - Physician Review All systems were reviewed & negative as marked: Yes Physical Exam - Physical Exam Narrative Physical Exam (Text): 12/28/18 21:56 Gen: VS reviewed, alert, well developed, well nourished, nontoxic, mild distress Eye: EOMI, PERRL Neck: no JVD, supple Abd: soft, nontender, no guarding, no rebound, no rigidity Ext: no edema Skin: good color, no rash, no cyanosis Psych: responds appropriately to questions, normal affect Neuro: oriented x3, CN2-12 intact grossly, motor intact, sensation intact Vital Signs Temp Pulse Resp BP Pulse Ox 12/28/18 21:38 98 F 58 L 20 189/92 H 99 Medical Decision Making ED Course and Treatment: 12/29/18 00:11 merino catheter was successfully placed by myself. catheter was flushed and cleared of clots. patient is ok for discharge and follow up with urology. - Medication Orders Current Medication Orders: Discontinued Medications Lidocaine HCl (Xylocaine 2% (Uro-Jet)) 1 ea TOP ONCE STA Stop: 12/28/18 21:50 Procedures - Time-Out Type of Procedure: merino catheter Site of Procedure: urethra Correct Patient (with visual ID + MR# on ID Band): Yes Correct Procedure: Yes Physician Name: Justen - Additional Procedures Progress: a [address] merino catheter was placed by myself. Disposition/Present on Arrival - Present on Arrival Any Indicators Present on Arrival: No History of DVT/PE: No History of Uncontrolled Diabetes: No Urinary Catheter: No History of Decub. Ulcer: No History Surgical Site Infection Following: None - Disposition Have Diagnosis and Disposition been Completed?: Yes Diagnosis: Urine retention, Clot hematuria Disposition: HOME/ ROUTINE Disposition Time: 00:12 Patient Plan: Discharge Patient Problems: Current Active Problems Problem Status Onset Urine retention Acute Clot hematuria Acute Condition: STABLE Discharge Instructions (ExitCare): Blood in the Urine (Hematuria), Adult (DC) Additional Instructions: return for any new or worsening symptoms. follow up with your urologist as soon as possible. follow up with your primary care doctor to recheck your high blood pressure. Forms: [employer] (Tongan)
[2018-12-29 03:19] VITALS: BP 156/86
== END 2018-12-29 00:47 | disposition home or self-care (01) ==
LOC: ED 21:25
DX: R33.9 Retention of urine, unspecified (principal); R31.9 Hematuria, unspecified; Z85.46 Personal history of malignant neoplasm of prostate

== ENCOUNTER 2019-01-07 07:48 | Outpatient (CLI) | payer MEDICARE | END 2019-01-07 07:49 | disposition home or self-care (01) | LOC: LAB 07:48 ==

== ENCOUNTER 2019-01-10 06:43 | Outpatient (CLI) | payer MEDICARE | END 2019-01-10 06:44 | disposition home or self-care (01) | LOC: CARDIO 06:43 ==

== ENCOUNTER 2019-01-14 07:18 | Day surgery (SDC) | payer MEDICARE ==
[2019-01-10 08:39] VITALS: BMI 36.0
[2019-01-14 08:38] LABS: BASO # 0.08 K/mm3 (0.0-2.0); BASO % 1.2 % (0.0-3.0); EOS # 0.2 (0.0-0.7); EOS % 3.2 % (1.5-5.0); HEMOGLOBIN 13.6 g/dL (14.0-18.0); LYMPH # 1.1 (1.2-3.4); MEAN CELL VOLUME 88.5 fl (80.0-105.0); MEAN CORPUSCULAR HEMOGLOBIN 29.5 pg (25.0-35.0); MEAN CORPUSCULAR HGB CONC 33.3 g/dl (31.0-37.0); MEAN PLATELET VOLUME 10.1 fl (7.0-11.0); MONO # 0.8 (0.1-0.6); MONO % 11.3 % (1.0-6.0); RBC 4.61 10^6/uL (3.5-6.1); RED CELL DISTRIBUTION WIDTH 14.1 % (11.5-14.5); WHITE BLOOD COUNT 6.9 10^3/uL (4.5-11.0)
[2019-01-14 08:45] LABS: BLOOD UREA NITROGEN 15 mg/dL (7-21); CALCIUM 8.8 mg/dL (8.4-10.5); GFR NON-AFRICAN AMERICAN > 60; HDL CHOLESTEROL 37 mg/dL (29-60)
[2019-01-14 08:46] LABS: INR 1.29; PROTHROMBIN TIME 14.6 SECONDS (9.4-12.5)
[2019-01-14 08:56] LABS: LDL CHOLESTEROL 49 mg/dL (0-129)
[2019-01-14] MEDS ORDERED: Iodixanol 320 MG/ML 200 ML BOTTLE IV ONE (10:30)
[2019-01-14] MEDS ORDERED: Lidocaine PF 2% (5 ml) Inj (For Cardiac Arrhy) ONE (10:30)
[2019-01-14] MEDS ORDERED: Iodixanol 320 MG/ML 100 ML BOTTLE IV ONE (10:30)
[2019-01-14] MEDS ORDERED: Phenylephrine 10 mg/ml Inj ONE (10:31)
[2019-01-14] MEDS ORDERED: Midazolam 2 MG/2 ML VIAL ONE ×3 (10:55→11:26)
[2019-01-14 12:27] VITALS: RESP 18; TEMP 98
[2019-01-14] MEDS ORDERED: Sodium Chloride 0.9% 1,000 ML IV SCH (12:30)
--- NOTE | 2019-01-14 15:53 | CARDCATH ---
PROCEDURE DATE: 01/14/2019 HISTORY: The patient is a 68-year-old male who presents with abnormal stress test. The patient's past medical history includes the anterior wall DC, post knee surgery which was treated with emergency angioplasty and a stent in the LAD. The patient is preop for preop clearance for a urologic procedure. With the abnormal stress test a cardiac catheterization was recommended. PROCEDURE: Left heart catheterization with coronary arteriography and left ventriculogram. The right femoral artery was cannulated with a 6-L[place]ian sheath. There were no complications. I performed moderate sedation which included the presence of an independent trained observer that assisted in monitoring the patient's level of consciousness and physiologic status. After administration of Versed and fentanyl, intra service time was 15 minutes. FINDINGS On catheterization revealed left ventricle contracted normally. Estimated ejection fraction 60%. The patient had a right dominant circulation. The RCA revealed intimal irregularities without critical lesions. The left main artery is unremarkable. The LAD revealed a patent stent in its proximal portion with mild intimal irregularities. The diagonal vessels were free of significant disease. Circumflex artery and obtuse marginal branches were free of significant disease. Manual compression was used to close both right and left femoral arteries which were required due to difficult access from the right femoral artery. The patient tolerated the procedure well. IN SUMMARY: The procedure revealed a patent stent the LAD consistent with single vessel CAD. LV function is normal. Given these findings, the patient is the patient should have no issues. No cardiac issues related to his urologic procedure. I have recommended to the patient that they undergo as soon as possible and be placed back on his antiplatelet drugs as soon as possible to avoid stent thrombosis. Kenneth Garcia MD
--- NOTE | 2019-01-14 16:08 | CARD ---
APPROVED REPORT Date of service: 01/14/2019 EKG Measurement Heart [id number] <Conclusion> Sinus bradycardia Otherwise normal ECG
[2019-01-14 16:09] VITALS: O2SAT 96
[2019-01-14 18:58] VITALS: BP 154/65; PULSE 62
== END 2019-01-14 19:00 | disposition home or self-care (01) ==
LOC: CATH 07:18
PROVIDERS: ATTEND Internal Medicine Cardiovascular Disease
DX: I25.10 Atherosclerotic heart disease of native coronary artery without angina pectoris (principal); R94.39 Abnormal result of other cardiovascular function study; E66.9 Obesity, unspecified; E78.5 Hyperlipidemia, unspecified; M19.90 Unspecified osteoarthritis, unspecified site; Z68.36 Body mass index [BMI] 36.0-36.9, adult; I25.2 Old myocardial infarction; Z95.5 Presence of coronary angioplasty implant and graft; Z85.46 Personal history of malignant neoplasm of prostate; Z87.442 Personal history of urinary calculi; Z96.653 Presence of artificial knee joint, bilateral
CPT/HCPCS: 36415; 80048; 80061; 85025; 85610; 85730; 86850; 86900; 93005; 93458; 99152; 99153; C1725; C1769; C1894; C2629; J1644; J2250; J3010; J7030; J7040; Q9966